=== PATIENT | female | born 1960 | race African-American/Black ===

== ENCOUNTER → 2016-05-27 | Outpatient (CLI) | payer MEDICAID | LOC: RAD 08:25 | PROVIDERS: ATTEND Family Medicine | DX: S39.92XA Unspecified injury of lower back, initial encounter (principal); X58.XXXA Exposure to other specified factors, initial encounter; Y93.9 Activity, unspecified; Y92.9 Unspecified place or not applicable | CPT/HCPCS: 72110 ==

== ENCOUNTER → 2016-09-30 | Outpatient (CLI) | payer MEDICAID ==
--- NOTE | 2016-09-30 13:33 | RADIOLOGY REPORT (SQ) ---
EXAM DESCRIPTION: KNEE LEFT 4 VIEW COMPLETED DATE/TIME: 09/30/2016 12:55 pm REASON FOR STUDY: PRIMARY OSTEOARTHRITIS OF BOTH KNEES COMPARISON: None. NUMBER OF VIEWS: Four views. TECHNIQUE: AP, lateral, and both oblique radiographic images acquired of the left knee. LIMITATIONS: None. FINDINGS: MINERALIZATION: Osteopenia BONES: No acute fracture or dislocation. No worrisome bone lesions. JOINT: No effusion. SOFT TISSUES: No soft tissue swelling. No radio-opaque foreign body. OTHER: No other significant finding. IMPRESSION: Osteopenia. No other significant abnormality is seen. TECHNICAL DOCUMENTATION: JOB ID: [id number] [employer]- All Rights Reserved
--- NOTE | 2016-09-30 13:38 | RADIOLOGY REPORT (SQ) ---
EXAM DESCRIPTION: KNEE RIGHT 4 VIEWS COMPLETED DATE/TIME: 09/30/2016 12:55 pm REASON FOR STUDY: PRIMARY OSTEOARTHRITIS OF BOTH KNEES COMPARISON: 11/24/2013 NUMBER OF VIEWS: Four views. TECHNIQUE: AP, lateral, and both oblique radiographic images acquired of the right knee. LIMITATIONS: None. FINDINGS: MINERALIZATION: Osteopenia. BONES: No acute fracture or dislocation. No worrisome bone lesions. JOINT: There is mild narrowing of the medial and lateral joint compartments, more on the medial than the lateral. Small marginal osteophytes are present more laterally than medially. Very small forming machine tender ior patellar osteophytes are present. There is no joint effusion. SOFT TISSUES: No soft tissue swelling. No radio-opaque foreign body. OTHER: No other significant finding. IMPRESSION: Osteopenia and degenerative joint changes as described TECHNICAL DOCUMENTATION: JOB ID: [id number] [employer]- All Rights Reserved
== END ==
LOC: RAD 12:38
PROVIDERS: ATTEND Family Medicine
DX: M17.0 Bilateral primary osteoarthritis of knee (principal)

== ENCOUNTER → 2016-10-30 | Outpatient (CLI) | payer MEDICAID ==
--- NOTE | 2016-10-30 10:36 | WOMENS IMAGING REPORT ---
EXAM DESCRIPTION: BONE DENSITY HIP/SPINE COMPLETED DATE/TIME: 10/30/2016 10:21 am REASON FOR STUDY: AGE RELATED OSTEOPOROSIS M81.0 AGE-RELATED OSTEOPOROSIS W/O CURRENT PATHOLOGICAL FRAC COMPARISON: None. TECHNIQUE: Dual-Energy X-ray Absorptiometry (DEXA) of the AP Spine and Hip. LIMITATIONS: None. FINDINGS: LUMBAR SPINE: The bone mineral density (BMD) measured from L1-L4 in the AP projection correlates with a T-score of -3.6, which is osteoporosis as defined by the World Health Organization. HIP: The bone mineral density (BMD) measured in the left hip correlates with a T-score of -2.6 in the femo ral neck, which is osteoporosis as defined by the World Health Organization. IMPRESSION: 1. LUMBAR SPINE: OSTEOPOROSIS. 2. HIP: OSTEOPOROSIS. COMMENT: The World Health Organization defines low BMD as follows: T-score: Normal: Greater than -1.0 Osteopenia: Between -1.0 and -2.5 Osteoporosis: Less than -2.5 without fractures Established osteoporosis: Less than -2.5 with fractures In general, you may wish to consider: Diagnosis Treatment Follow-up DEXA Normal BMD Prevention 2-3 years Osteopenia Prevention/Therapy 1-2 years Osteoporosis Therapy Yearly TECHNICAL DOCUMENTATION: JOB ID: [id number] [employer]- All Rights Reserved
== END ==
LOC: WI 09:49
PROVIDERS: ATTEND Family Medicine
DX: M81.0 Age-related osteoporosis without current pathological fracture (principal)
CPT/HCPCS: 77080

== ENCOUNTER 2016-11-27 21:25 | Emergency (ER) | payer MEDICAID ==
[2016-11-27 22:08] LABS: APPEARANCE,URINE SLIGHTLY-CLOUDY; BILIRUBIN,URINE NEGATIVE (NEGATIVE); GLUCOSE, URINE NEGATIVE (NEGATIVE); KETONES,URINE NEGATIVE (NEGATIVE); LEUKOCYTE ESTERASE,URINE NEGATIVE (NEGATIVE); NITRITE,URINE NEGATIVE (NEGATIVE); PROTEIN,URINE NEGATIVE (NEGATIVE); URINE SPECIFIC GRAVITY 1.026
[2016-11-27] MEDS ORDERED: KETOROLAC TROMETHAMINE INJ/PF 30 MG/1 ML SDV IV ONE (23:44)
[2016-11-27] MEDS ORDERED: MORPHINE SULFATE 10 MG/ML INJ IV PRN (23:44)
[2016-11-28 00:13] LABS: ABSOLUTE BASOPHILS # (AUTO) 0.2 10^3/uL (0.0-0.2); ABSOLUTE EOSINOPHILS # (AUTO) 0.8 10^3/uL (0.0-0.6); ABSOLUTE LYMPHOCYTES (AUTO) 3.6 10^3/uL (0.5-4.7); ABSOLUTE MONOCYTES (AUTO) 0.6 10^3/uL (0.1-1.4); ABSOLUTE NEUT (AUTO) 5.8 10^3/uL (1.7-8.2); BASOPHILS % (AUTO) 1.6 % (0-2); EOSINOPHILS % (AUTO) 7.2 % (0-6); HEMATOCRIT 39.5 % (36.0-47.0); HEMOGLOBIN 12.9 g/dL (12.0-15.5); HGB HCT DIFFERENCE -0.8; LYMPHOCYTES % (AUTO) 32.8 % (13-45); MEAN CORPUSCULAR HEMOGLOBIN 26.3 pg (27.0-33.4); MEAN CORPUSCULAR HGB CONC 32.6 g/dL (32.0-36.0); MEAN CORPUSCULAR VOLUME 81 fl (80-97); MONOCYTES % (AUTO) 5.1 % (3-13); RED BLOOD COUNT 4.89 10^6/uL (3.72-5.28); RED CELL DISTRIBUTION WIDTH 15.1 % (11.5-14.0); SEGMENTED NEUTROPHILS % (AUTO) 53.3 % (42-78); WHITE BLOOD COUNT 10.8 10^3/uL (4.0-10.5)
[2016-11-28] MEDS ORDERED: HYDROMORPHONE HCL INJ/PF 2 MG/ML AMPULE IV ONE (00:21)
[2016-11-28 00:26] LABS: ALANINE AMINOTRANSFERASE 26 U/L (9-52); ALBUMIN 4.2 g/dL (3.5-5.0); ALKALINE PHOSPHATASE 97 U/L (38-126); ANION GAP 11 (5-19); ASPARTATE AMINO TRANSFERASE 20 U/L (14-36); BILIRUBIN,DIRECT 0.4 mg/dL (0.0-0.4); BILIRUBIN,TOTAL 0.5 mg/dL (0.2-1.3); BLOOD UREA NITROGEN 12 mg/dL (7-20); CALCIUM 10.2 mg/dL (8.4-10.2); CARBON DIOXIDE 26 mmol/L (22-30); CHLORIDE 107 mmol/L (98-107); CREATININE RESULT 0.89 mg/dL (0.52-1.25); GLUCOSE 88 mg/dL (75-110); POTASSIUM 4.1 mmol/L (3.6-5.0); SODIUM 143.9 mmol/L (137-145); TOTAL PROTEIN 7.7 g/dL (6.3-8.2)
[2016-11-28] MEDS ORDERED: HALOPERIDOL LACTATE INJ 5 MG/1 ML VIAL IV ONE (01:25)
[2016-11-28] MEDS ORDERED: DIPHENHYDRAMINE HCL 50 MG/ML VIAL IV ONE (01:25)
--- NOTE | 2016-11-28 01:34 | RADIOLOGY REPORT (SQ) ---
EXAM DESCRIPTION: CT ABD/PELVIS NO ORAL OR IV COMPLETED DATE/TIME: 11/28/2016 12:56 am REASON FOR STUDY: right flank, rlq pain COMPARISON: None. TECHNIQUE: CT scan of the abdomen and pelvis performed without intravenous or oral contrast. Images reviewed with lung, soft tissue, and bone windows. Reconstructed coronal and sagittal MPR images revi ewed. All images stored on PACS. All CT scanners at this facility use dose modulation, iterative reconstruction, and/or weight based d osing when appropriate to reduce radiation dose to as low as reasonably achievable (ALARA). [facility]: Dose Right [facility]: CareDose [facility]: Dose Right [facility]: Teradose 4D [facility]: WebTeb RADIATION DOSE: Up-to-date CT equipment and radiation dose reduction techniques were employed. CTDIv ol: 7.5 mGy. DLP: 382 mGy-cm.mGy. LIMITATIONS: None. FINDINGS: LOWER CHEST: No significant findings. No nodules or infiltrates. Minimal pericardial flui d. NON-CONTRASTED LIVER, SPLEEN, ADRENALS: Evaluation limited by lack of IV contrast. No identified sign ificant masses. PANCREAS: No masses. No peripancreatic inflammatory changes. GALLBLADDER: Surgically absent. RIGHT KIDNEY AND URETER: No suspicious masses. Assessment limited by lack of IV contrast. No signif icant calcifications. No hydronephrosis or hydroureter. LEFT KIDNEY AND URETER: No suspicious masses. Assessment limited by lack of IV contrast. No signifi cant calcifications. No hydronephrosis or hydroureter. AORTA AND RETROPERITONEUM: No aneurysm. No retroperitoneal masses or adenopathy. BOWEL AND PERITONEAL CAVITY: No obvious masses or inflammatory changes. No free fluid. APPENDIX: Normal. PELVIS, BLADDER, AND ABDOMINAL WALL:No abnormal masses. No free fluid. Bladder normal. BONES: No significant findings. OTHER: No other significant finding. IMPRESSION: NO SIGNIFICANT OR ACUTE PROCESS IN THE ABDOMEN OR PELVIS. COMMENT: Quality ID # [id number]: Final reports with documentation of one or more dose reduction techniques (e.g., Automated exposure control, adjustment of the mA and/or kV according to patient size, use of iterative reconstruction technique) TECHNICAL DOCUMENTATION: JOB ID: [id number] [employer]- All Rights Reserved
[2016-11-28] MEDS ORDERED: LACTULOSE SYRUP 20 GM/30 ML UDCUP PO ONE (01:35)
--- NOTE | 2016-11-28 01:50 | ER Document Report ---
ED General - General Chief Complaint: Flank Pain Stated Complaint: ABDOMINAL PAIN Time Seen by Provider: 11/27/16 22:57 Notes: Patient is a 56-year-old female with a past medical history of a cholecystectomy who presents with acute onset of right lower quadrant and right flank pain approximately 4 hours prior to arrival. States the pain was abrupt in onset and has been constant since that time with intermittent periods of worsening. She denies a history of similar symptoms in the past. Nothing improves or worsens the pain. She has not seen a primary care doctor regarding today's concerns. She denies any associated vomiting or diarrhea although notes that she has not had a bowel movement in over 3 days. She has continued to pass flatus. Denies any vaginal bleeding or discharge. No dysuria. No fever or constitutional symptoms. TRAVEL OUTSIDE OF THE [place] IN LAST 30 DAYS: No - Related Data Allergies/Adverse Reactions: fentanyl [Fentanyl] Allergy (Severe, Verified 11/27/16 21:42) Anaphylaxis Penicillins Allergy (Mild, Verified 11/27/16 21:42) rash w/scars Past Medical History - General Information source: Patient - Social History Smoking Status: Never Smoker Frequency of alcohol use: None Drug Abuse: None Lives with: Family Family History: Reviewed & Not Pertinent, Other - Past Medical History Cardiac Medical History: Reports: Hx Heart Attack - "slight [place]", Hx Hypertension Denies: Hx Coronary Artery Disease Pulmonary Medical History: Reports: Hx Bronchitis Denies: Hx Asthma, Hx COPD, Hx Pneumonia Neurological Medical History: Reports: Hx Migraine. Denies: Hx Cerebrovascular Accident, Hx Seizures Renal/ Medical History: Denies: Hx Peritoneal Dialysis GI Medical History: Reports: Hx Gastroesophageal Reflux Disease Musculoskeltal Medical History: Denies Hx Arthritis Psychiatric Medical History: Denies: Hx Depression Past Surgical History: Reports: Hx Cholecystectomy. Denies: Hx Hysterectomy - Immunizations Hx Diphtheria, Pertussis, Tetanus Vaccination: Yes Hx Pneumococcal Vaccination: 12/06/14 Review of Systems - Review of Systems Notes: Constitutional: Negative for fever. HENT: Negative for sore throat. Eyes: Negative for visual changes. Cardiovascular: Negative for chest pain. Respiratory: Negative for shortness of breath. Gastrointestinal: Positive for abdominal pain Genitourinary: Negative for dysuria. Musculoskeletal: Negative for back pain. Skin: Negative for rash. Neurological: Negative for headaches, weakness or numbness. 10 point ROS negative except as marked above and in HPI. Physical Exam - Vital signs Vitals: Temp Pulse Resp BP Pulse Ox 97.7 F 94 19 146/129 H 99 11/27/16 21:44 11/27/16 21:44 11/27/16 21:44 11/27/16 21:44 11/27/16 21:44 Interpretation: Hypertensive Notes: PHYSICAL EXAMINATION: GENERAL: Appears uncomfortable but in no acute distress HEAD: Atraumatic, normocephalic. EYES: Pupils equal round and reactive to light, extraocular movements intact, sclera anicteric, conjunctiva are normal. ENT: nares patent, oropharynx clear without exudates. Moist mucous membranes. NECK: Normal range of motion, supple without lymphadenopathy LUNGS: Breath sounds clear to auscultation bilaterally and equal. No wheezes rales or rhonchi. HEART: Regular rate and rhythm without murmurs ABDOMEN: Soft, mild tenderness in the right lower quadrant as well as the right flank without any focal rebound or guarding, normoactive bowel sounds. No guarding, no rebound. No masses appreciated. EXTREMITIES: Normal range of motion, no pitting or edema. No cyanosis. NEUROLOGICAL: No focal neurological deficits. Moves all extremities spontaneously and on command. PSYCH: Anxious SKIN: Warm, Dry, normal turgor, no rashes or lesions noted. Course - Re-evaluation Re-evalutation: 11/28/16 01:48 Patient presents with acute onset of right lower quadrant and right flank tenderness. Patient has focal tenderness the right lower quadrant without rebound or guarding. She also has right CVA tenderness. Urinalysis unremarkable without evidence of acute pyelonephritis or hematuria. Her clinical history is not consistent with an acute appendicitis given that her symptoms were acute in onset. I also very low clinical suspicion for an acute mesenteric ischemia, bowel obstruction, bowel perforation, although an acute nephrolithiasis does remain in the differential despite a normal urine. CT the abdomen pelvis was obtained without contrast to further evaluate for possible nephrolithiasis. This is noted to be unremarkable with an appropriate visualization of the appendix which is also noted to be normal. She does have a large colonic stool burden particular the right side and patient does report that she has not had a bowel movement in over 3 days which may account for her abdominal pain. Repeat abdominal exam remains benign. Her vitals have remained within normal limits. Her laboratories including her white blood cell count, liver function testing, and renal function are all unremarkable. At this time will discharge with return precautions and follow-up recommendations. Verbal discharge instructions given a the bedside and opportunity for questions given. Medication warnings reviewed. Patient is in agreement with this plan and has verbalized understanding of return precautions and the need for primary care follow-up in the next 24-72 hours. - Vital Signs Vital signs: Temp Pulse Resp BP Pulse Ox 97.7 F 94 14 119/79 93 11/27/16 21:44 11/27/16 21:44 11/28/16 02:01 11/28/16 02:01 11/28/16 02:01 - Laboratory Result Diagrams: 11/27/16 23:58 11/27/16 23:58 Laboratory results interpreted by me: 11/27/16 11/27/16 21:45 23:58 WBC 10.8 H MCH 26.3 L RDW 15.1 H Eosinophils % 7.2 H Absolute Eosinophils 0.8 H Urine Urobilinogen 2.0 H Urine Ascorbic Acid 40 H - Diagnostic Test Radiology reviewed: Reports reviewed Discharge - Discharge Clinical Impression: Right lower quadrant abdominal pain, Nausea Condition: Stable Disposition: HOME, SELF-CARE Additional Instructions: You have been seen in the Emergency Department (ED) for abdominal pain. Your evaluation did not identify a clear cause of your symptoms but was generally reassuring. For your constipation: You should take 8 caps of MiraLAX and placed in 1 liter of Gatorade. Drink one half of the solution and wait 4 hours. If you do not have a bowel movement take the remaining half of the solution. Please follow up with your doctor as soon as possible regarding today's emergent visit and the symptoms that are bothering you. Return to the ED if your abdominal pain worsens or fails to improve, you develop bloody vomiting, bloody diarrhea, you are unable to tolerate fluids due to vomiting, fever greater than 101, or other symptoms that concern you. Referrals: BRITTA SCANLON, [Primary Care Provider] - Follow up as needed
[2016-11-28 02:11] VITALS: BP 119/79
== END 2016-11-28 02:17 | disposition home or self-care (01) ==
LOC: ER 21:25
DX: R10.31 Right lower quadrant pain (principal); R11.0 Nausea; R19.4 Change in bowel habit; I10 Essential (primary) hypertension; I25.2 Old myocardial infarction; Z90.49 Acquired absence of other specified parts of digestive tract; Z88.0 Allergy status to penicillin; Z87.892 Personal history of anaphylaxis; Z88.5 Allergy status to narcotic agent
CPT/HCPCS: 99284; 96374; 96375; 36415; 85025; 80053; 81001; 74176; J1200; J1630; J3490; J1885; J2270; J1170

== ENCOUNTER 2017-07-02 10:16 | Emergency (ER) | payer MEDICAID ==
[2017-07-02] MEDS ORDERED: IPRATROPIUM/ALBUTEROL 0.5-2.5 MG/3 ML AMPUL NEB ONE (11:09)
--- NOTE | 2017-07-02 11:12 | ER Document Report ---
ED General - General Chief Complaint: Breathing Difficulty Stated Complaint: BREATHING DIFFICULTY Time Seen by Provider: 07/02/17 11:03 Mode of Arrival: Ambulatory Information source: Patient Notes: 56-year-old female presents with complaints of chest wall pain lung pain. Patient notes when she does not take a breath her lungs on her over the past 2 days feels very tight. She has been smoking for 40 years but has never been diagnosed with COPD Patient denies any fevers or chills denies any DVT or PE risk factors TRAVEL OUTSIDE OF THE [place] IN LAST 30 DAYS: No - HPI Onset: Yesterday Onset/Duration: Intermittent Quality of pain: Cramping Severity: Mild Pain Level: 1 Associated symptoms: Body/muscle aches, Shortness of breath Exacerbated by: Coughing, Deep breathing Relieved by: Denies Similar symptoms previously: No Recently seen / treated by doctor: No - Related Data Allergies/Adverse Reactions: fentanyl [Fentanyl] Allergy (Severe, Verified 07/02/17 10:17) Anaphylaxis Penicillins Allergy (Mild, Verified 07/02/17 10:17) rash w/scars Past Medical History - Social History Smoking Status: Current Every Day Smoker Cigarette use (# per day): Yes Chew tobacco use (# tins/day): No Smoking Education Provided: Yes - Patient counselled regarding cessation for 4 minutes Family History: Reviewed & Not Pertinent, Other - Past Medical History Cardiac Medical History: Reports: Hx Heart Attack - "slight [place]", Hx Hypertension Denies: Hx Coronary Artery Disease Pulmonary Medical History: Reports: Hx Bronchitis Denies: Hx Asthma, Hx COPD, Hx Pneumonia Neurological Medical History: Reports: Hx Migraine. Denies: Hx Cerebrovascular Accident, Hx Seizures Renal/ Medical History: Denies: Hx Peritoneal Dialysis GI Medical History: Reports: Hx Gastroesophageal Reflux Disease Musculoskeltal Medical History: Denies Hx Arthritis Psychiatric Medical History: Denies: Hx Depression Past Surgical History: Reports: Hx Cholecystectomy. Denies: Hx Hysterectomy - Immunizations Hx Diphtheria, Pertussis, Tetanus Vaccination: Yes Hx Pneumococcal Vaccination: 12/06/14 Review of Systems - Review of Systems Notes: REVIEW OF SYSTEMS: CONSTITUTIONAL : Denies fever, chills, or sweats. Denies recent illness. EENT: Denies eye, ear, throat, or mouth pain or symptoms. Denies nasal or sinus congestion or discharge. Denies throat, tongue, or mouth swelling or difficulty swallowing. CARDIOVASCULAR: Denies chest pain. Denies palpitations or racing or irregular heart beat. Denies ankle edema. RESPIRATORY: Admits to cough admits to chest tightness GASTROINTESTINAL: Denies abdominal pain or distention. Denies nausea, vomiting , or diarrhea. Denies blood in vomitus, stools, or per rectum. Denies black, tarry stools. Denies constipation. GENITOURINARY: Denies difficulty urinating, painful urination, burning, frequency, blood in urine, or discharge. FEMALE GENITOURINARY: Denies vaginal bleeding, heavy or abnormal periods, irregular periods. Denies vaginal discharge or odor. MUSCULOSKELETAL: Denies back or neck pain or stiffness. Denies joint pain or swelling. SKIN: Denies rash, lesions or sores. HEMATOLOGIC : Denies easy bruising or bleeding. LYMPHATIC: Denies swollen, enlarged glands. NEUROLOGICAL: Denies confusion or altered mental status. Denies passing out or loss of consciousness. Denies dizziness or lightheadedness. Denies headache. Denies weakness or paralysis or loss of use of either side. Denies problems with gait or speech. Denies sensory loss, numbness, or tingling. Denies seizures. PSYCHIATRIC: Denies anxiety or stress. Denies depression, suicidal ideation, or homicidal ideation. ALL OTHER SYSTEMS REVIEWED AND NEGATIVE. PHYSICAL EXAMINATION: GENERAL: Well-appearing, well-nourished and in no acute distress. HEAD: Atraumatic, normocephalic. EYES: Pupils equal round and reactive to light, extraocular movements intact, conjunctiva are normal. ENT: Nares patent, oropharynx clear without exudates. Moist mucous membranes. NECK: Normal range of motion, supple without lymphadenopathy LUNGS: Breath sounds clear to auscultation bilaterally and equal. No wheezes rales or rhonchi. Patient notes pain when she takes of breath and HEART: Regular rate and rhythm without murmurs ABDOMEN: Soft, nontender, nondistended abdomen. No guarding, no rebound. No masses appreciated. Female : deferred Musculoskeletal: Normal range of motion, no pitting or edema. No cyanosis. NEUROLOGICAL: Cranial nerves grossly intact. Normal speech, normal gait. Normal sensory, motor exams PSYCH: Normal mood, normal affect. SKIN: Warm, Dry, normal turgor, no rashes or lesions noted. Dictation was performed using Dragon voice recognition software Physical Exam - Vital signs Vitals: Temp Pulse Resp BP Pulse Ox 98.2 F 67 18 148/83 H 97 07/02/17 10:26 07/02/17 10:07/02/17 10:07/02/17 10:07/02/17 10:26 Course - Re-evaluation Re-evalutation: 07/02/17 11:12 Patient has probable undiagnosed COPD, otherwise she looks well is in no distress CTA pending 07/02/17 13:44 CTa of the chest notes no significant abnormality, patient overall looks well is in no distress notes improvement after breathing treatments this may be disturbed COPD, I will have the patient follow up with her primary care physician she is going over there directly to set an appointment After performing a Medical Screening Examination, I estimate there is LOW risk for ACUTE CORONARY SYNDROME, PULMONARY EMBOLI, RESPIRATORY FAILURE, SEPSIS OR MENINGITIS, thus I consider the discharge disposition reasonable. I have reevaluated this patient multiple times and no significant life threatening changes are noted. The patient and I have discussed the diagnosis and risks, and we agree with discharging home with close follow-up. We also discussed returning to the Emergency Department immediately if new or worsening symptoms occur. We have discussed the symptoms which are most concerning (e.g., changing or worsening pain, trouble swallowing or breathing, neck stiffness, fever) that necessitate immediate return. - Vital Signs Vital signs: Temp Pulse Resp BP Pulse Ox 98.2 F 67 18 148/83 H 97 07/02/17 10:26 07/02/17 10:07/02/17 10:07/02/17 10:07/02/17 10:26 - Laboratory Result Diagrams: 07/02/17 11:27 07/02/17 11:27 Laboratory results interpreted by me: 07/02/17 07/02/17 11:27 11:27 MCH 26.0 L RDW 15.4 H Eosinophils % 12.0 H Absolute Eosinophils 1.0 H Sodium 145.6 H Total Protein 8.5 H - Diagnostic Test Radiology reviewed: Image reviewed - CTA chest notes no acute abnormality, Reports reviewed Discharge - Discharge Clinical Impression: Encounter for smoking cessation counseling Dyspnea Qualifiers: Dyspnea type: unspecified Qualified Code(s): R06.00 - Dyspnea, unspecified Condition: Stable Disposition: HOME, SELF-CARE Instructions: Chronic Obstructive Lung Disease ([facility]) Prescriptions: Albuterol Sulfate [Proair HFA Inhalation Aerosol 8.5 gm MDI] 2 puff IH Q4H PRN # 1 mdi PRN Reason: Prednisone [Deltasone 20 mg Tablet] 3 tab PO DAILY 5 Days tablet Referrals: BRITTA SCANLON DO [Primary Care Provider] - Follow up tomorrow
[2017-07-02 11:45] LABS: ABSOLUTE BASOPHILS # (AUTO) 0.1 10^3/uL (0.0-0.2); ABSOLUTE LYMPHOCYTES (AUTO) 2.3 10^3/uL (0.5-4.7); ABSOLUTE MONOCYTES (AUTO) 0.5 10^3/uL (0.1-1.4); ABSOLUTE NEUT (AUTO) 4.4 10^3/uL (1.7-8.2); BASOPHILS % (AUTO) 1.2 % (0-2); HEMATOCRIT 41.7 % (36.0-47.0); HEMOGLOBIN 13.6 g/dL (12.0-15.5); LYMPHOCYTES % (AUTO) 28.2 % (13-45); MEAN CORPUSCULAR HGB CONC 32.7 g/dL (32.0-36.0); MEAN CORPUSCULAR VOLUME 80 fl (80-97); MONOCYTES % (AUTO) 5.9 % (3-13); PLATELET COUNT 448 10^3/uL (150-450); RED BLOOD COUNT 5.24 10^6/uL (3.72-5.28); RED CELL DISTRIBUTION WIDTH 15.4 % (11.5-14.0); SEGMENTED NEUTROPHILS % (AUTO) 52.7 % (42-78); TOTAL CELLS COUNTED % (AUTO) 100 %; WHITE BLOOD COUNT 8.3 10^3/uL (4.0-10.5)
[2017-07-02 11:59] LABS: ALANINE AMINOTRANSFERASE 18 U/L (9-52); ALBUMIN 4.4 g/dL (3.5-5.0); ALKALINE PHOSPHATASE 80 U/L (38-126); ANION GAP 12 (5-19); ASPARTATE AMINO TRANSFERASE 28 U/L (14-36); BILIRUBIN,DIRECT 0.4 mg/dL (0.0-0.4); BILIRUBIN,TOTAL 0.6 mg/dL (0.2-1.3); BLOOD UREA NITROGEN 13 mg/dL (7-20); CALCIUM 9.7 mg/dL (8.4-10.2); CARBON DIOXIDE 27 mmol/L (22-30); CHLORIDE 107 mmol/L (98-107); CREATINE KINASE 119 U/L (30-135); GLUCOSE 85 mg/dL (75-110); POTASSIUM 4.5 mmol/L (3.6-5.0); SODIUM 145.6 mmol/L (137-145); TOTAL PROTEIN 8.5 g/dL (6.3-8.2)
[2017-07-02 12:11] LABS: CREATINE KINASE MB 0.76 ng/mL (<4.55)
[2017-07-02 12:13] LABS: TROPONIN I < 0.012 ng/mL
--- NOTE | 2017-07-02 12:56 | EKG REPORT ---
SEVERITY:- NORMAL ECG - SINUS RHYTHM : Confirmed by: Maxi Davis MD 02-Jul-2017 12:55:30
--- NOTE | 2017-07-02 13:00 | RADIOLOGY REPORT (SQ) ---
EXAM DESCRIPTION: CTA CHEST COMPLETED DATE/TIME: 07/02/2017 12:25 pm REASON FOR STUDY: smoker, cough, pain COMPARISON: None. TECHNIQUE: CT scan of the chest performed using helical scanning technique with dynamic intravenous contrast injection. Images reviewed with lung, soft tissue and bone windows. Reconstructed coronal and sagittal MPR images reviewed. Additional 3 dimensional post-processing performed to develop Maximal Intensity Projection images (OK P). All images stored on PACS. All CT scanners at this facility use dose modulation, iterative reconstruction, and/or weight based d osing when appropriate to reduce radiation dose to as low as reasonably achievable (ALARA). [facility]: Dose Right [facility]: CareDose [facility]: Dose Right [facility]: Teradose 4D [facility]: listedplaces CONTRAST TYPE AND DOSE: contrast/concentration: Isovue 370.00 mg/ml; Total Contrast Delivered: 68.0 ml; Total Saline Delivered: 80.1 ml Contrast bolus adequate for pulmonary arteries and aorta. RENAL FUNCTION: GFR > 60. RADIATION DOSE: CT Rad equipment meets quality standard of care and radiation dose reduction techniq ues were employed. CTDIvol: 15.0 - 39.7 mGy. DLP: 560 mGy-cm. . LIMITATIONS: None. FINDINGS: LUNGS AND PLEURA: No masses, infiltrates, pneumothorax. No pleural effusions, calcificati ons. AORTA AND GREAT VESSELS: No aneurysm. No dissection. HEART: No pericardial effusion. PULMONARY ARTERIES: No emboli visualized in the main pulmonary arteries or the segmental branches. HILAR AND MEDIASTINAL STRUCTURES: No identified masses or abnormal nodes. HARDWARE: None in the chest. UPPER ABDOMEN: No acute findings. Limited exam. THYROID AND OTHER SOFT TISSUES: No masses. No adenopathy. BONES: No acute or significant finding. 3D MIPS: Confirm above findings. OTHER: No other significant finding. IMPRESSION: No PE. No acute findings. COMMENT: Quality ID # [id number]: Final reports with documentation of one or more dose reduction techniques (e.g., Automated exposure control, adjustment of the mA and/or kV according to patient size, use of iterative reconstruction technique) TECHNICAL DOCUMENTATION: JOB ID: [id number] [employer]- All Rights Reserved Reading location - IP/workstation name: [facility]
[2017-07-02 13:51] VITALS: BP 110/82
== END 2017-07-02 13:51 | disposition home or self-care (01) ==
LOC: ER 10:16
DX: R06.00 Dyspnea, unspecified (principal); M79.1 Myalgia; R06.02 Shortness of breath; F17.210 Nicotine dependence, cigarettes, uncomplicated; I10 Essential (primary) hypertension; I25.2 Old myocardial infarction; Z88.0 Allergy status to penicillin; Z90.49 Acquired absence of other specified parts of digestive tract
CPT/HCPCS: 93005; 99406; 94640; 99285; 36415; 82553; 82550; 85025; 80053; 84484; 71275; 93010; J7620

== ENCOUNTER 2017-08-04 08:46 | Day surgery (SDC) | payer MEDICAID ==
[~2017-08-04 08:46] MED LIST: PROPOFOL INJ 200 MG/20 ML VIAL IV ONE
[2017-08-04 10:57] VITALS: BP 128/97
--- NOTE | 2017-08-04 13:55 | Operative Report ---
Operative Report DATE OF SURGERY: 08/04/17 Operative Report: The risks, benefits and alternatives of the procedure including risks of bleeding, perforation requiring surgery are explained to the patient in detail and informed consent is obtained. Patient was taken back to the endoscopy suite and placed in a left, lateral decubital position. Timeout was called. Propofol medications administered. A rectal examination is done which did not reveal any masses, tears or fissures. An Olympus videoscope was inserted into the patient's rectum. The scope was then carefully advanced all the way to the cecum. The cecum was identified by the usual anatomical landmarks including the ileocecal valve as well as the appendiceal office. Photodocumentation is obtained. The scope was then sequentially pulled back via the various segments of the colon including the ascending colon, hepatic flexure, transverse colon, splenic flexure, descending colon and finally into the rectosigmoid portions of the colon. Retroflexion maneuvers performed. The risks benefits and alternatives of the procedure explained to the patient in detail and informed consent is obtained.A GIF Olympus video scope was inserted into the patient's mouth and hypopharynx, the esophagus is identified intubated and insufflated, the scope was then advanced through the esophagus stomach and duodenum, retroflexion maneuver is done, the esophagus stomach and first and second portions of the duodenum examined PREOPERATIVE DIAGNOSIS: Family history of colon cancer. Colorectal cancer screening. Epigastric pain POSTOPERATIVE DIAGNOSIS: Right side colon Inflammation status post biopsy. Internal hemorrhoids. Gastritis status post biopsy. Esophagitis OPERATION: Colonoscopy with biopsy. EGD with biopsy SURGEON: LUCIO CABALLERO ANESTHESIA: LMAC TISSUE REMOVED OR ALTERED: As noted above. COMPLICATIONS: None. ESTIMATED BLOOD LOSS: None. INTRAOPERATIVE FINDINGS: As noted above. PROCEDURE: Patient tolerated the procedure well. No postprocedure complications are noted. Patient discharged in good condition. Discharge date 08/04/2017. Discharge diet: Regular. Discharge activity: Regular. 2-3 week follow-up to discuss findings. Patient is instructed to call the office or proceed to the emergency room should there be any further problems or questions. 5 year surveillance colonoscopy. We will wait on pathology.
== END 2017-08-04 11:00 | disposition home or self-care (01) ==
LOC: END 08:46
PROVIDERS: ATTEND Internal Medicine Gastroenterology
DX: Z12.11 Encounter for screening for malignant neoplasm of colon (principal); K52.9 Noninfective gastroenteritis and colitis, unspecified; K64.8 Other hemorrhoids; K62.89 Other specified diseases of anus and rectum; K29.50 Unspecified chronic gastritis without bleeding; Z80.0 Family history of malignant neoplasm of digestive organs; K21.9 Gastro-esophageal reflux disease without esophagitis; J44.9 Chronic obstructive pulmonary disease, unspecified; I10 Essential (primary) hypertension; F17.210 Nicotine dependence, cigarettes, uncomplicated; Z79.51 Long term (current) use of inhaled steroids; Z88.0 Allergy status to penicillin
CPT/HCPCS: 43239; 45380; 88342 ×2; 88305 ×2; J2704; 813

== ENCOUNTER → 2017-09-13 | Outpatient (CLI) | payer MEDICAID ==
--- NOTE | 2017-09-13 11:31 | RADIOLOGY REPORT (SQ) ---
EXAM DESCRIPTION: BARIUM SWALLOW ESOPHAGUS COMPLETED DATE/TIME: 09/13/2017 9:46 am REASON FOR STUDY: DYSPHAGIA (R13.10), GERD (K21.9) R13.10 DYSPHAGIA, UNSPECIFIED COMPARISON: None. TECHNIQUE: Under fluoroscopic guidance, patient ingested effervescent granules followed by thick and thin barium. Fluoroscopic spot images and routine radiographic images acquired and stored on PACS. 12 MM BARIUM TABLET GIVEN: Yes No significant delay in passage. LIMITATIONS: None. FLUOROSCOPY TIME: FLUORO TIME: 3.2 minutes 5 series of digital images saved to PACS. FINDINGS: NEUROMUSCULAR COORDINATION OF SWALLOW: Normal. No aspiration. ESOPHAGEAL MOTILITY: Normal peristalsis. No esophageal spasm. Prominent cricopharyngeal impression o n the upper cervical esophagus. ESOPHAGEAL MUCOSA: Normal mucosa without masses or ulceration. GASTRO-ESOPHAGEAL JUNCTION: No hiatal hernia. Minimal gastroesophageal reflux to the distal 3rd of t he esophagus. NON-GI TRACT STRUCTURES: Clips right upper quadrant post cholecystectomy OTHER: No other significant finding. IMPRESSION: Mild gastroesophageal reflux. No distal esophageal stricture is identified. COMMENT: Quality ID [id number]: Final reports for procedures using fluoroscopy that document radiation exp osure indices, or exposure time and number of fluorographic images (if radiation exposure indices are not available) TECHNICAL DOCUMENTATION: JOB ID: [id number] [employer]- All Rights Reserved Reading location - IP/workstation name: [email or web address]
== END ==
LOC: RAD 08:46
PROVIDERS: ATTEND Surgery
DX: R13.10 Dysphagia, unspecified (principal); K21.9 Gastro-esophageal reflux disease without esophagitis
CPT/HCPCS: 74220

== ENCOUNTER 2017-09-16 11:35 | Emergency (ER) | payer MEDICAID ==
[2017-09-16] MEDS ORDERED: ONDANSETRON 4 MG TAB.RAPDIS PO ONE (12:07)
[2017-09-16] MEDS ORDERED: MORPHINE SULFATE 10 MG/ML INJ IV ONE ×3 (12:08→16:25)
--- NOTE | 2017-09-16 12:08 | ER Document Report ---
ED Medical Screen (RME) - General Chief Complaint: Flank Pain Stated Complaint: RIGHT FLANK PAIN Time Seen by Provider: 09/16/17 12:05 Mode of Arrival: Ambulatory Information source: Patient TRAVEL OUTSIDE OF THE [place] IN LAST 30 DAYS: No - HPI Notes: 09/16/17 12:08 I have greeted and performed a rapid initial assessment of this patient. A comprehensive ED assessment and evaluation of the patient, analysis of test results and completion of the medical decision making process will be conducted by additional ED providers. 56-year-old female presents to emergency department with complaints of nausea and right lower quadrant pain x 1 day. Patient describes pain as a sharp and stabbing sensation located in the right lower quadrant with radiation to the right back. No alleviating or exacerbating factors. Patient denies any abdominal surgeries. Denies dysuria, hematuria, constipation,diarrhea. PHYSICAL EXAMINATION: GENERAL: Well-appearing, well-nourished and in no acute distress. HEAD: Atraumatic, normocephalic. EYES: Pupils equal round extraocular movements intact, conjunctiva are normal. ENT: Nares patent NECK: Normal range of motion LUNGS: No respiratory distress Musculoskeletal: Normal range of motion NEUROLOGICAL: Normal speech, normal gait. PSYCH: Normal mood, normal affect. SKIN: Warm, Dry, normal turgor, no rashes or lesions noted. 09/16/17 12:09 - Related Data Allergies/Adverse Reactions: fentanyl [Fentanyl] Allergy (Severe, Verified 09/16/17 11:37) Anaphylaxis Penicillins Allergy (Mild, Verified 09/16/17 11:37) rash w/scars Past Medical History - Past Medical History Cardiac Medical History: Reports: Hx Heart Attack - "slight [place]", Hx Hypertension Denies: Hx Coronary Artery Disease Pulmonary Medical History: Reports: Hx Bronchitis Denies: Hx Asthma, Hx COPD, Hx Pneumonia Neurological Medical History: Reports: Hx Migraine. Denies: Hx Cerebrovascular Accident, Hx Seizures Renal/ Medical History: Denies: Hx Peritoneal Dialysis GI Medical History: Reports: Hx Gastroesophageal Reflux Disease Musculoskeltal Medical History: Reports Hx Arthritis - OA FREEDOM KNEES Psychiatric Medical History: Denies: Hx Depression Past Surgical History: Reports: Hx Cholecystectomy. Denies: Hx Hysterectomy - Immunizations Hx Diphtheria, Pertussis, Tetanus Vaccination: Yes Physical Exam - Vital signs Vitals: Temp Pulse Resp BP Pulse Ox 97.5 F 70 18 146/86 H 100 09/16/17 11:48 09/16/17 11:48 09/16/17 11:48 09/16/17 11:48 09/16/17 11:48 Course - Vital Signs Vital signs: Temp Pulse Resp BP Pulse Ox 97.5 F 70 18 146/86 H 100 09/16/17 11:48 09/16/17 11:48 09/16/17 11:48 09/16/17 11:48 09/16/17 11:48 Doctor's Discharge - Discharge Referrals: BRITTA SCANLON DO [Primary Care Provider] - Follow up as needed
[2017-09-16 12:49] LABS: ABSOLUTE BASOPHILS # (AUTO) 0.1 10^3/uL (0.0-0.2); ABSOLUTE EOSINOPHILS # (AUTO) 0.6 10^3/uL (0.0-0.6); ABSOLUTE LYMPHOCYTES (AUTO) 2.9 10^3/uL (0.5-4.7); ABSOLUTE MONOCYTES (AUTO) 0.4 10^3/uL (0.1-1.4); ABSOLUTE NEUT (AUTO) 3.2 10^3/uL (1.7-8.2); BASOPHILS % (AUTO) 0.9 % (0-2); HEMATOCRIT 42.1 % (36.0-47.0); HEMOGLOBIN 13.9 g/dL (12.0-15.5); LYMPHOCYTES % (AUTO) 40.8 % (13-45); MEAN CORPUSCULAR HEMOGLOBIN 26.4 pg (27.0-33.4); MEAN CORPUSCULAR HGB CONC 33.1 g/dL (32.0-36.0); MEAN CORPUSCULAR VOLUME 80 fl (80-97); PLATELET COUNT 374 10^3/uL (150-450); RED BLOOD COUNT 5.27 10^6/uL (3.72-5.28); RED CELL DISTRIBUTION WIDTH 15.4 % (11.5-14.0); SEGMENTED NEUTROPHILS % (AUTO) 44.3 % (42-78); TOTAL CELLS COUNTED % (AUTO) 100 %; WHITE BLOOD COUNT 7.1 10^3/uL (4.0-10.5)
[2017-09-16 14:04] LABS: APPEARANCE,URINE CLEAR; BILIRUBIN,URINE NEGATIVE (NEGATIVE); COLOR,URINE COLORLESS; GLUCOSE, URINE NEGATIVE (NEGATIVE); KETONES,URINE NEGATIVE (NEGATIVE); LEUKOCYTE ESTERASE,URINE NEGATIVE (NEGATIVE); NITRITE,URINE NEGATIVE (NEGATIVE); PROTEIN,URINE NEGATIVE (NEGATIVE); URINE SPECIFIC GRAVITY 1.002; UROBILINOGEN,URINE NEGATIVE mg/dL (<2.0)
[2017-09-16 14:53] LABS: ALANINE AMINOTRANSFERASE 20 U/L (9-52); ALBUMIN 4.2 g/dL (3.5-5.0); ALKALINE PHOSPHATASE 85 U/L (38-126); ANION GAP 14 (5-19); ASPARTATE AMINO TRANSFERASE 22 U/L (14-36); BILIRUBIN,DIRECT 0.4 mg/dL (0.0-0.4); BILIRUBIN,TOTAL 0.5 mg/dL (0.2-1.3); BLOOD UREA NITROGEN 11 mg/dL (7-20); CALCIUM 9.9 mg/dL (8.4-10.2); CARBON DIOXIDE 21 mmol/L (22-30); CHLORIDE 109 mmol/L (98-107); GLUCOSE 80 mg/dL (75-110); LIPASE 113.3 U/L (23-300); POTASSIUM 4.3 mmol/L (3.6-5.0); SODIUM 144.1 mmol/L (137-145); TOTAL PROTEIN 7.9 g/dL (6.3-8.2)
--- NOTE | 2017-09-16 16:04 | RADIOLOGY REPORT (SQ) ---
EXAM DESCRIPTION: CT ABD/PELVIS NO ORAL OR IV COMPLETED DATE/TIME: 09/16/2017 3:35 pm REASON FOR STUDY: RLQ pain COMPARISON: None. TECHNIQUE: CT TOPOGRAM of the abdomen and pelvis performed without intravenous or oral contrast. Al l images stored on PACS. All CT scanners at this facility use dose modulation, iterative reconstruction, and/or weight based d osing when appropriate to reduce radiation dose to as low as reasonably achievable (ALARA). [facility]: Dose Right [facility]: CareDose [facility]: Dose Right [facility]: Teradose 4D [facility]: Globel Direct RADIATION DOSE: 0.01mGy. LIMITATIONS: None. FINDINGS: Patient had a barium swallow with dense liquid barium on 09/13/2017. [employer] digital radiograph for CT scan planning was obtained. There is very dense barium in the patien t's pelvis which would cause significant streak artifact on the images. In the right lower quadrant, a thin linear collection of barium is present in the expected location of the appendix, a benign fin ding. This suggests against acute appendicitis. IMPRESSION: Very dense barium is present in the pelvic colon from prior barium swallow. CT scan was not performed. Grossly nonobstructive bowel gas pattern on the CT digital topogram for CT planning . COMMENT: No charge Quality ID # [id number]: Final reports with documentation of one or more dose reduction techniques (e.g., Au tomated exposure control, adjustment of the mA and/or kV according to patient size, use of iterative reconstruction technique) TECHNICAL DOCUMENTATION: JOB ID: [id number] [employer]- All Rights Reserved Reading location - IP/workstation name: [email or web address]
--- NOTE | 2017-09-16 16:22 | ER Document Report ---
ED GI/ - General Chief Complaint: Flank Pain Stated Complaint: RIGHT FLANK PAIN Time Seen by Provider: 09/16/17 12:05 Mode of Arrival: Ambulatory Information source: Patient Notes: Patient is a 56-year-old female who presents to the ER today for right flank pain radiating around to the right lower abdomen that started while she was here in the emergency department with her who is admitted at this time. Patient states she has a history of kidney stones, denies seeing any blood in her urine. She states she had no pain until here in the emergency department when it "knocked me down to the floor." She admits to nausea but no vomiting. She states that this does feel like her previous kidney stones. TRAVEL OUTSIDE OF THE [place] IN LAST 30 DAYS: No - Related Data Allergies/Adverse Reactions: fentanyl [Fentanyl] Allergy (Severe, Verified 09/16/17 11:37) Anaphylaxis Penicillins Allergy (Mild, Verified 09/16/17 11:37) rash w/scars Past Medical History - General Information source: Patient - Social History Smoking Status: Current Every Day Smoker Family History: Reviewed & Not Pertinent, Other Patient has suicidal ideation: No Patient has homicidal ideation: No - Past Medical History Cardiac Medical History: Reports: Hx Heart Attack - "slight [place]", Hx Hypertension Denies: Hx Coronary Artery Disease Pulmonary Medical History: Reports: Hx Bronchitis Denies: Hx Asthma, Hx COPD, Hx Pneumonia Neurological Medical History: Reports: Hx Migraine. Denies: Hx Cerebrovascular Accident, Hx Seizures Renal/ Medical History: Denies: Hx Peritoneal Dialysis GI Medical History: Reports: Hx Gastroesophageal Reflux Disease Musculoskeletal Medical History: Reports Hx Arthritis - OA FREEDOM KNEES Psychiatric Medical History: Denies: Hx Depression Past Surgical History: Reports: Hx Cholecystectomy. Denies: Hx Hysterectomy - Immunizations Hx Diphtheria, Pertussis, Tetanus Vaccination: Yes Hx Pneumococcal Vaccination: 12/06/14 Review of Systems - Review of Systems Constitutional: No symptoms reported EENT: No symptoms reported Cardiovascular: No symptoms reported Respiratory: No symptoms reported Gastrointestinal: See HPI Genitourinary: See HPI Female Genitourinary: No symptoms reported Musculoskeletal: No symptoms reported Skin: No symptoms reported Hematologic/Lymphatic: No symptoms reported Neurological/Psychological: No symptoms reported Physical Exam - Vital signs Vitals: Temp Pulse Resp BP Pulse Ox 97.5 F 70 18 146/86 H 100 09/16/17 11:48 09/16/17 11:48 09/16/17 11:48 09/16/17 11:48 09/16/17 11:48 - Notes Notes: PHYSICAL EXAMINATION: GENERAL: Uncomfortable appearing, but in no acute distress. HEAD: Atraumatic, normocephalic. EYES: Pupils equal round and reactive to light, extraocular movements intact, sclera anicteric, conjunctiva are normal. NECK: Normal range of motion, supple without lymphadenopathy LUNGS: CTAB and equal. No wheezes rales or rhonchi. HEART: Regular rate and rhythm without murmurs ABDOMEN: Soft, right lower quadrant tenderness. No guarding, no rebound BACK: no vertebral tenderness, normal ROM GI/: Right CVA tenderness EXTREMITIES: Normal range of motion, no pitting edema. No cyanosis. NEUROLOGICAL: Cranial nerves grossly intact. Normal sensory/motor exams. PSYCH: Normal mood, normal affect. SKIN: Warm, Dry, normal turgor, no rashes or lesions noted Course - Re-evaluation Re-evalutation: 09/16/17 17:58 Patient has just had a barium swallow test done days ago, barium is still too much in her system for the CAT scan today to really see much. Radiologist does state that she does see the appendix however and does not see any signs of acute appendicitis, she cannot rule out kidney stone or ureteral stone today. I will provide patient with Toradol and nausea medication. - Vital Signs Vital signs: Temp Pulse Resp BP Pulse Ox 97.3 F 66 18 130/105 H 98 09/16/17 16:44 09/16/17 16:44 09/16/17 16:44 09/16/17 16:44 09/16/17 16:44 - Laboratory Result Diagrams: 09/16/17 12:22 09/16/17 14:08 Laboratory results interpreted by me: 09/16/17 09/16/17 09/16/17 12:22 12:22 14:08 MCH 26.4 L RDW 15.4 H Eosinophils % 9.0 H Chloride 109 H Carbon Dioxide 21 L Urine Blood SMALL H Discharge - Discharge Clinical Impression: Flank pain Hematuria Qualifiers: Hematuria type: unspecified type Qualified Code(s): R31.9 - Hematuria, unspecified Condition: Stable Disposition: HOME, SELF-CARE Additional Instructions: Return immediately for any new or worsening symptoms. Follow up with primary care provider, call tomorrow to make followup appointment. Prescriptions: Ondansetron [Zofran Odt 4 mg Tablet] 1 - 2 tab PO Q4HP PRN #30 tab.rapdis PRN Reason: Ketorolac Tromethamine [Toradol 10 mg Tablet] 10 mg PO Q6HP PRN #15 tablet PRN Reason: Referrals: BRITTA SCANLON DO [Primary Care Provider] - Follow up as needed
[2017-09-16 16:45] VITALS: BP 130/105
== END 2017-09-16 16:46 | disposition home or self-care (01) ==
LOC: ER 11:35
DX: R10.31 Right lower quadrant pain (principal); R31.9 Hematuria, unspecified; F17.200 Nicotine dependence, unspecified, uncomplicated; I10 Essential (primary) hypertension; Z87.442 Personal history of urinary calculi; I25.2 Old myocardial infarction; Z88.0 Allergy status to penicillin; Z90.49 Acquired absence of other specified parts of digestive tract
CPT/HCPCS: 96376; 99284; 96374; 36415; 83690; 85025; 80053; 81001; S0119; J2270; 74176

== ENCOUNTER 2017-09-19 09:34 | Emergency (ER) | payer MEDICAID ==
--- NOTE | 2017-09-19 09:48 | ER Document Report ---
ED Medical Screen (RME) - General Chief Complaint: Flank Pain Stated Complaint: SIDE PAIN Time Seen by Provider: 09/19/17 09:41 Mode of Arrival: Ambulatory Information source: Patient Notes: 56-year-old female presents with complaint of right lower quadrant pain that started 4 days prior to arrival. Patient describes the pain as constant, sharp with radiation to her back. She was seen recently and a CAT scan was performed which did not show any evidence of appendicitis but we were unable to rule out a stone at that time. Patient states that despite the antinausea and pain medication she was discharged home with the pain has gotten worse. Patient has associated nausea, vomiting. She denies any fever, chills. I have greeted and performed a rapid initial assessment of this patient. A comprehensive ED assessment and evaluation of the patient including analysis of labs and imaging ( if obtained) and completion of medical decision making will be conducted by an additional ED provider. PHYSICAL EXAMINATION: GENERAL: Appears uncomfortable HEAD: Atraumatic, normocephalic. EYES: Pupils equal round extraocular movements intact, conjunctiva are normal. NECK: Normal range of motion LUNGS: No respiratory distress Musculoskeletal: Normal range of motion NEUROLOGICAL: Normal speech, normal gait. PSYCH: Normal mood, normal affect. SKIN: Warm, Dry, normal turgor, no rashes or lesions noted. TRAVEL OUTSIDE OF THE [place] IN LAST 30 DAYS: No - Related Data Allergies/Adverse Reactions: fentanyl [Fentanyl] Allergy (Severe, Verified 09/19/17 09:45) Anaphylaxis Penicillins Allergy (Mild, Verified 09/19/17 09:45) rash w/scars Past Medical History - Social History Chew tobacco use (# tins/day): No Frequency of alcohol use: Occasional Drug Abuse: None - Past Medical History Cardiac Medical History: Reports: Hx Heart Attack - "slight [place]", Hx Hypertension Denies: Hx Coronary Artery Disease Pulmonary Medical History: Reports: Hx Bronchitis Denies: Hx Asthma, Hx COPD, Hx Pneumonia Neurological Medical History: Reports: Hx Migraine. Denies: Hx Cerebrovascular Accident, Hx Seizures Renal/ Medical History: Denies: Hx Peritoneal Dialysis GI Medical History: Reports: Hx Gastroesophageal Reflux Disease Musculoskeltal Medical History: Reports Hx Arthritis - OA FREEDOM KNEES Psychiatric Medical History: Denies: Hx Depression Past Surgical History: Reports: Hx Cholecystectomy. Denies: Hx Hysterectomy - Immunizations Hx Diphtheria, Pertussis, Tetanus Vaccination: Yes Physical Exam - Vital signs Vitals: Temp Pulse Resp BP Pulse Ox 97.9 F 66 17 142/84 H 100 09/19/17 09:38 09/19/17 09:38 09/19/17 09:38 09/19/17 09:38 09/19/17 09:38 Course - Vital Signs Vital signs: Temp Pulse Resp BP Pulse Ox 97.9 F 66 17 142/84 H 100 09/19/17 09:38 09/19/17 09:38 09/19/17 09:38 09/19/17 09:38 09/19/17 09:38 Doctor's Discharge - Discharge Referrals: BRITTA SCANLON DO [Primary Care Provider] - Follow up as needed
[2017-09-19] MEDS ORDERED: HYDROMORPHONE HCL INJ/PF 2 MG/ML AMPULE IM ONE (09:50)
[2017-09-19] MEDS ORDERED: ONDANSETRON HCL 8 MG TABLET PO ONE (09:50)
[2017-09-19] MEDS ORDERED: HYDROMORPHONE HCL INJ/PF 2 MG/ML AMPULE IV ONE ×2 (10:31→12:00)
[2017-09-19 10:45] LABS: ABSOLUTE BASOPHILS # (AUTO) 0.1 10^3/uL (0.0-0.2); ABSOLUTE EOSINOPHILS # (AUTO) 0.7 10^3/uL (0.0-0.6); ABSOLUTE LYMPHOCYTES (AUTO) 2.4 10^3/uL (0.5-4.7); ABSOLUTE MONOCYTES (AUTO) 0.3 10^3/uL (0.1-1.4); ABSOLUTE NEUT (AUTO) 3.6 10^3/uL (1.7-8.2); BASOPHILS % (AUTO) 1.3 % (0-2); EOSINOPHILS % (AUTO) 10.5 % (0-6); HEMOGLOBIN 13.2 g/dL (12.0-15.5); LYMPHOCYTES % (AUTO) 33.2 % (13-45); MEAN CORPUSCULAR HEMOGLOBIN 25.6 pg (27.0-33.4); MEAN CORPUSCULAR HGB CONC 32.2 g/dL (32.0-36.0); MEAN CORPUSCULAR VOLUME 80 fl (80-97); MONOCYTES % (AUTO) 4.7 % (3-13); PLATELET COUNT 409 10^3/uL (150-450); RED BLOOD COUNT 5.16 10^6/uL (3.72-5.28); RED CELL DISTRIBUTION WIDTH 15.4 % (11.5-14.0); SEGMENTED NEUTROPHILS % (AUTO) 50.3 % (42-78); TOTAL CELLS COUNTED % (AUTO) 100 %; WHITE BLOOD COUNT 7.2 10^3/uL (4.0-10.5)
[2017-09-19 11:04] LABS: BLOOD UREA NITROGEN 14 mg/dL (7-20); CALCIUM 9.2 mg/dL (8.4-10.2); CARBON DIOXIDE 26 mmol/L (22-30); CHLORIDE 111 mmol/L (98-107); GLUCOSE 90 mg/dL (75-110); POTASSIUM 4.4 mmol/L (3.6-5.0)
[2017-09-19 11:05] LABS: ANION GAP 9 (5-19)
--- NOTE | 2017-09-19 11:07 | ER Document Report ---
ED GI/ - General Chief Complaint: Flank Pain Stated Complaint: SIDE PAIN Time Seen by Provider: 09/19/17 09:41 Mode of Arrival: Ambulatory Information source: Patient Notes: Patient presents complaining of a one-week history of right flank and side pain. Patient states the pain does go to the left flank as well. Patient reports nausea and vomiting 6 episodes today. Patient states that she was here recently for this complaint. Patient does report urinary frequency. Patient denies any fever. Patient denies any diarrhea. TRAVEL OUTSIDE OF THE [place] IN LAST 30 DAYS: No - HPI Patient complains to provider of: Vomiting, Other - Flank pain. No: Abdominal pain, Dysuria Onset: Last week Timing/Duration: Persistent Pain Level: 4 Location: Left flank, Right flank Vaginal bleeding (Compared to normal period): None Associated symptoms: Nausea, Urinary frequency, Vomiting. denies: Diarrhea, Fever, Urinary hesitancy, Urinary retention Exacerbated by: Denies Relieved by: Denies Similar symptoms previously: Yes Recently seen / treated by doctor: Yes - Related Data Allergies/Adverse Reactions: fentanyl [Fentanyl] Allergy (Severe, Verified 09/19/17 09:45) Anaphylaxis Penicillins Allergy (Mild, Verified 09/19/17 09:45) rash w/scars Past Medical History - General Information source: Patient - Social History Smoking Status: Current Every Day Smoker Chew tobacco use (# tins/day): No Smoking Education Provided: Yes Frequency of alcohol use: Occasional Drug Abuse: None Occupation: None Lives with: Family Family History: Reviewed & Not Pertinent, Other Patient has suicidal ideation: No Patient has homicidal ideation: No - Past Medical History Cardiac Medical History: Reports: Hx Heart Attack - "slight [place]", Hx Hypertension Denies: Hx Coronary Artery Disease Pulmonary Medical History: Reports: Hx Bronchitis Denies: Hx Asthma, Hx COPD, Hx Pneumonia Neurological Medical History: Reports: Hx Migraine. Denies: Hx Cerebrovascular Accident, Hx Seizures Renal/ Medical History: Reports: Hx Kidney Stones. Denies: Hx Peritoneal Dialysis GI Medical History: Reports: Hx Gastroesophageal Reflux Disease Musculoskeletal Medical History: Reports Hx Arthritis - OA FREEDOM KNEES Psychiatric Medical History: Denies: Hx Depression Past Surgical History: Reports: Hx Cholecystectomy. Denies: Hx Hysterectomy - Immunizations Hx Diphtheria, Pertussis, Tetanus Vaccination: Yes Hx Pneumococcal Vaccination: 12/06/14 Review of Systems - Review of Systems Constitutional: No symptoms reported. denies: Fever, Recent illness EENT: No symptoms reported Cardiovascular: No symptoms reported. denies: Chest pain Respiratory: No symptoms reported. denies: Cough, Short of breath Gastrointestinal: Nausea, Vomiting. denies: Diarrhea Genitourinary: Frequency, Flank pain. denies: Dysuria Female Genitourinary: No symptoms reported Musculoskeletal: Back pain Skin: No symptoms reported Hematologic/Lymphatic: No symptoms reported Neurological/Psychological: No symptoms reported Physical Exam - Vital signs Vitals: Temp Pulse Resp BP Pulse Ox 97.9 F 66 17 142/84 H 100 09/19/17 09:38 09/19/17 09:38 09/19/17 09:38 09/19/17 09:38 09/19/17 09:38 - General General appearance: Appears well, Alert In distress: None - HEENT Head: Normocephalic, Atraumatic Eyes: Normal Conjunctiva: Normal Nasal: Normal Mouth/Lips: Normal Mucous membranes: Normal Neck: Normal, Supple. No: Lymphadenopathy - Respiratory Respiratory status: No respiratory distress Chest status: Nontender Breath sounds: Normal. No: Decreased air movement, Rales, Rhonchi, Stridor, Wheezing Chest palpation: Normal - Cardiovascular Rhythm: Regular Heart sounds: S1 appreciated, S2 appreciated Murmur: No - Abdominal Inspection: Normal Distension: No distension Bowel sounds: Normal - right mid abd tenderness Tenderness: Tender, Guarding Organomegaly: No organomegaly - Back Back: CVA tenderness - bilat - Extremities General upper extremity: Normal inspection, Normal ROM General lower extremity: Normal inspection, Normal ROM - Neurological Neuro grossly intact: Yes Cognition: Normal Leena Coma Scale Eye Opening: Spontaneous Leena Coma Scale Verbal: Oriented [place] Coma Scale Motor: Obeys Commands Leena Coma Scale Total: 15 - Psychological Associated symptoms: Normal affect, Normal mood - Skin Skin Temperature: Warm Skin Moisture: Dry Skin Color: Normal Course - Re-evaluation Re-evalutation: 09/19/17 11:[address] Jimenez regarding pt presentation and diagnostic evaluation. Reviewed patient's labs and comparison from her recent ER visit. 09/19/17 12:56 Patient without any fever or leukocytosis. Patient reports 1 week history of pain symptoms. Reviewed patient's survey scan from her previous ER visit. No concern for appendicitis at this time. No concern for obstructive uropathy. Suspect that patient may have musculoskeletal back pain symptoms. Patient states that her primary doctor was planning to refer her to a chiropractor to manage her back pain symptoms. The patient presents with low back pain without signs of spinal cord compression, cauda equina syndrome, infection, aneurysm, or other serious etiology. The patient is neurologically intact. Given the extremely risk of these diagnoses further testing and evaluation for these possibilities does not appear to be indicated at this time. Patient has been instructed to return if the symptoms worsen or change in any way. - Vital Signs Vital signs: Temp Pulse Resp BP Pulse Ox 98 F 68 16 137/82 H 100 09/19/17 13:16 09/19/17 13:16 09/19/17 13:16 09/19/17 13:16 09/19/17 13:16 - Laboratory Result Diagrams: 09/19/17 10:00 09/19/17 10:00 Laboratory results interpreted by me: 09/19/17 09/19/17 09/19/17 10:00 10:00 10:00 MCH 25.6 L RDW 15.4 H Eosinophils % 10.5 H Absolute Eosinophils 0.7 H Sodium 146.0 H Chloride 111 H Urine Blood MODERATE H Urine Urobilinogen 2.0 H 09/19/17 12:57 Labs- Entire Visit 09/19/17 09/19/17 09/19/17 10:00 10:00 10:00 WBC 7.2 RBC 5.16 Hgb 13.2 Hct 41.0 MCV 80 MCH 25.6 L MCHC 32.2 RDW 15.4 H Plt Count 409 Seg Neutrophils % 50.3 Lymphocytes % 33.2 Monocytes % 4.7 Eosinophils % 10.5 H Basophils % 1.3 Absolute Neutrophils 3.6 Absolute Lymphocytes 2.4 Absolute Monocytes 0.3 Absolute Eosinophils 0.7 H Absolute Basophils 0.1 Sodium 146.0 H Potassium 4.4 Chloride 111 H Carbon Dioxide 26 Anion Gap 9 BUN 14 Creatinine 0.86 Est GFR ( Amer) > 60 Est GFR (Non-Af Amer) > 60 Glucose 90 Calcium 9.2 Urine Color YELLOW Urine Appearance SLIGHTLY-CLOUDY Urine pH 5.0 Ur Specific [place] 1.023 Urine Protein NEGATIVE Urine Glucose (UA) NEGATIVE Urine Ketones NEGATIVE Urine Blood MODERATE H Urine Nitrite NEGATIVE Urine Bilirubin NEGATIVE Urine Urobilinogen 2.0 H Ur Leukocyte Esterase NEGATIVE Urine WBC (Auto) 1 Urine RBC (Auto) 9 Squamous Epi Cells Auto 6 Urine Mucus (Auto) OCC Urine Ascorbic Acid NEGATIVE - Diagnostic Test Radiology reviewed: Reports reviewed Discharge - Discharge Clinical Impression: Flank pain Condition: Stable Disposition: HOME, SELF-CARE Instructions: Abdominal Pain ([facility]), Flank Pain ([facility]) Additional Instructions: Return immediately for any new or worsening symptoms Followup with your primary care provider tomorrow as planned Prescriptions: Methocarbamol [Robaxin 500 Mg Tablet] 500 mg PO QID PRN #24 tablet PRN Reason: Forms: Smoking Cessation Education Referrals: BRITTA SCANLON DO [Primary Care Provider] - Follow up tomorrow
[2017-09-19 11:16] LABS: APPEARANCE,URINE SLIGHTLY-CLOUDY; BILIRUBIN,URINE NEGATIVE (NEGATIVE); COLOR,URINE YELLOW; GLUCOSE, URINE NEGATIVE (NEGATIVE); KETONES,URINE NEGATIVE (NEGATIVE); LEUKOCYTE ESTERASE,URINE NEGATIVE (NEGATIVE); NITRITE,URINE NEGATIVE (NEGATIVE); PROTEIN,URINE NEGATIVE (NEGATIVE); URINE SPECIFIC GRAVITY 1.023
--- NOTE | 2017-09-19 12:30 | RADIOLOGY REPORT (SQ) ---
EXAM DESCRIPTION: [employer] COMPLETED DATE/TIME: 09/19/2017 12:00 pm REASON FOR STUDY: r side, r flank pain COMPARISON: None. TECHNIQUE: Dynamic and static grayscale images acquired of the kidneys and bladder and recorded on P ACS. Additional selected color Doppler and spectral images recorded. LIMITATIONS: None. FINDINGS: RIGHT KIDNEY: Normal size. Normal echogenicity. No solid or suspicious masses. No h ydronephrosis. No calcifications. LEFT KIDNEY: Normal size. Normal echogenicity. No solid or suspicious masses. No hydronephrosi s. No calcifications. BLADDER: No masses. OTHER FINDINGS: No other significant finding. IMPRESSION: NORMAL RENAL AND BLADDER ULTRASOUND. TECHNICAL DOCUMENTATION: JOB ID: [id number] [employer] All Rights Reserved Reading location - IP/workstation name: [email or web address]
[2017-09-19] MEDS ORDERED: LIDOCAINE 5% (700 MG) TRANSDERMAL ADH..PATCH TP ONE (12:57)
[2017-09-19 13:17] VITALS: BP 137/82
== END 2017-09-19 13:18 | disposition home or self-care (01) ==
LOC: ER 09:34
DX: R10.9 Unspecified abdominal pain (principal); R11.2 Nausea with vomiting, unspecified; R35.0 Frequency of micturition; M54.5 Low back pain; F17.200 Nicotine dependence, unspecified, uncomplicated; I10 Essential (primary) hypertension; Z88.0 Allergy status to penicillin; Z87.892 Personal history of anaphylaxis
CPT/HCPCS: 96376; 99284; 96374; 36415; 85025; 80048; 81001; 76775; J1170; S0119; J3490

== ENCOUNTER → 2017-09-21 | Day surgery (SDC) | payer MEDICAID ==
[~2017-09-21] MED LIST changes: +LABETALOL HCL 200 MG TABLET ONE; +LIDOCAINE 2% JELLY 5 ML TUBE ONE; +MAGNESIUM SULFATE 20 GM/500 ML RTUINJ IV ONE; -PROPOFOL INJ 200 MG/20 ML VIAL IV ONE
== END ==
LOC: END 07:40
PROVIDERS: ATTEND Surgery
DX: R13.10 Dysphagia, unspecified (principal)

== ENCOUNTER → 2017-10-26 | Outpatient (CLI) | payer MEDICAID ==
--- NOTE | 2017-10-26 13:28 | WOMENS IMAGING REPORT ---
EXAM DESCRIPTION: BILAT SCREENING MAMMO W/CAD COMPLETED DATE/TIME: 10/26/2017 11:19 am REASON FOR STUDY: ROUTINE BILATERAL SCREENING;Z12.31 Z12.31 ENCNTR SCREEN MAMMOGRAM FOR MALIGNANT N EOPLASM OF JUVENAL COMPARISON: No previous, patient cannot remember where her last mammograms were TECHNIQUE: Standard craniocaudal and mediolateral oblique views of each breast recorded using digita l acquisition. LIMITATIONS: None. FINDINGS: Findings present which are benign by mammographic criteria. No suspicious masses, calcifi cations or architectural distortion. Pertinent benign findings: Multiple smooth round benign-appearing bilateral mammographic masses likel y breast cysts or intramammary lymph nodes. Read with the assistance of CAD. .[facility] - R2 Cenova Version 1.3 .[facility] Imaging - R2 Cenova Version 1.[address] Imaging - R2 Cenova Version 2.4 .[facility] - R2 Cenova Version 2.4 .[facility] - R2 Canopy Inspector Version 9.2 Benign mammographic findings may include one or more of the following: Smooth masses, popcorn/rim/co arse calcifications, asymmetries, post-procedure changes, and lesions with long-standing stability. IMPRESSION: BENIGN MAMMOGRAPHIC FINDINGS. BIRADS 2 BREAST DENSITY: c. The breasts are heterogeneously dense, which may obscure small masses. BIRAD: 2 BENIGN FINDING(S) RECOMMENDATION: ROUTINE SCREENING Please continue yearly bilateral screening mammography/tomosynthesis in October 2018 COMMENT: The patient has been notified of the results by letter per MQSA requirements. Additional no tification policies are in place for contacting patient with suspicious or incomplete findings. Quality ID #[id number]: The [employer] recommends an annual screening mammogram for women aged 40 years or over. This facility utilizes a reminder system to ensure that all patients receive reminder letters, and/or direct phone calls for appointments. This includes reminders for routine scr eening mammograms, diagnostic mammograms, or other Breast Imaging Interventions when appropriate. Th is patient will be placed in the appropriate reminder system. The [employer] (ACR) has developed recommendations for screening MRI of the breast s in certain patient populations, to be used in conjunction with mammography. Breast MRI surveillanc e may be appropriate for women with more than 20% lifetime risk of developing breast cancer as deter mined by genetic testing, significant family history of the disease, or history of mantle radiation f or Hodgkins Disease. ACR Practice Guidelines 2008. TECHNICAL DOCUMENTATION: FINDING NUMBER: (1) ASSESSMENT: (1) JOB ID: [id number] [employer]- All Rights Reserved Reading location - IP/workstation name: [email or web address]
== END ==
LOC: WI 09:57
PROVIDERS: ATTEND Physician Assistant Medical
DX: Z12.31 Encounter for screening mammogram for malignant neoplasm of breast (principal)
CPT/HCPCS: 77067

== ENCOUNTER → 2017-10-28 | Outpatient (CLI) | payer MEDICAID ==
[~2017-10-28] MED LIST changes: +KETOROLAC TROMETHAMINE INJ/PF 30 MG/1 ML SDV ONE; -LABETALOL HCL 200 MG TABLET ONE; -LIDOCAINE 2% JELLY 5 ML TUBE ONE; +LORAZEPAM INJ 2 MG/1 ML VIAL ONE; -MAGNESIUM SULFATE 20 GM/500 ML RTUINJ IV ONE
--- NOTE | 2017-10-28 11:27 | RADIOLOGY REPORT (SQ) ---
EXAM DESCRIPTION: CT ABD/PELVIS COMBO COMPLETED DATE/TIME: 10/28/2017 8:28 am REASON FOR STUDY: GROSS HEMATURIA R31.0 GROSS HEMATURIA COMPARISON: 11/28/2016 TECHNIQUE: CT scan of the abdomen and pelvis performed with and without intravenous contrast, and wi thout oral contrast. Contrasted imaging performed helical scanning technique and dynamic intravenous contrast injection. Images reviewed with lung, soft tissue, and bone windows. Reconstructed coronal a nd sagittal MPR images reviewed. Delayed images for evaluation of the urinary system also acquired. A ll images stored on PACS. All CT scanners at this facility use dose modulation, iterative reconstruction, and/or weight based d osing when appropriate to reduce radiation dose to as low as reasonably achievable (ALARA). [facility]: Dose Right [facility]: CareDose [facility]: Dose Right [facility]: Teradose 4D [facility]: Confluence Solar CONTRAST TYPE AND DOSE: 81 cc Omnipaque 350- low osmolar. RENAL FUNCTION: BUN 13 creatinine 0.8 RADIATION DOSE: . LIMITATIONS: None. FINDINGS: NON-CONTRASTED IMAGIN mm stone upper pole right kidney. POST-CONTRASTED IMAGING: LOWER CHEST: No significant findings. No nodules or infiltrates. LIVER: Normal size. No masses. No dilated ducts. SPLEEN: Normal size. No focal lesions. PANCREAS: No masses. No significant calcifications. No adjacent inflammation or peripancreatic fluid collections. Pancreatic duct not dilated. GALLBLADDER: Surgically absent. ADRENAL GLANDS: No significant masses or asymmetry. RIGHT KIDNEY AND URETER: No solid masses. 1 mm stone upper pole. No hydronephrosis or hydroureter . LEFT KIDNEY AND URETER: Subcentimeter low-density lesions too small to characterize but likely benign cysts. Subcentimeter higher density cortical lesion lower pole, probably a hemorrhagic cyst, and un changed. No significant calcifications. No hydronephrosis or hydroureter. AORTA AND VESSELS: No aneurysm. No dissection. Renal arteries, SMA, celiac without stenosis. RETROPERITONEUM: No retroperitoneal adenopathy, hemorrhage or masses. BOWEL AND PERITONEAL CAVITY: No masses or inflammatory changes. No free fluid or peritoneal masses. APPENDIX: Normal. PELVIS: No mass. No free fluid. Normal bladder. ABDOMINAL WALL: No masses. No hernias. BONES: No significant or acute findings. OTHER: No other significant finding. IMPRESSION: 1 mm nonobstructing stone upper pole right kidney. TECHNICAL DOCUMENTATION: JOB ID: [id number] Quality ID # [id number]: Final reports with documentation of one or more dose reduction techniques (e.g., Au tomated exposure control, adjustment of the mA and/or kV according to patient size, use of iterative reconstruction technique) 2010 [employer]- All Rights Reserved Reading location - IP/workstation name: [email or web address]-[email or web address]
== END ==
LOC: RAD 07:27
PROVIDERS: ATTEND Urology
DX: N20.0 Calculus of kidney (principal); R31.0 Gross hematuria
CPT/HCPCS: 74178

== ENCOUNTER 2017-10-29 06:54 | Day surgery (SDC) | payer MEDICAID ==
[2017-10-22 11:09] LABS: HEMATOCRIT 41.3 % (36.0-47.0); HEMOGLOBIN 13.6 g/dL (12.0-15.5); MEAN CORPUSCULAR HEMOGLOBIN 26.3 pg (27.0-33.4); MEAN CORPUSCULAR VOLUME 80 fl (80-97); PLATELET COUNT 367 10^3/uL (150-450); RED CELL DISTRIBUTION WIDTH 15.6 % (11.5-14.0)
[2017-10-22 11:56] LABS: ALANINE AMINOTRANSFERASE 18 U/L (9-52); ALBUMIN 4.5 g/dL (3.5-5.0); ALKALINE PHOSPHATASE 94 U/L (38-126); ANION GAP 14 (5-19); ASPARTATE AMINO TRANSFERASE 23 U/L (14-36); BILIRUBIN,DIRECT 0.3 mg/dL (0.0-0.4); BILIRUBIN,TOTAL 0.5 mg/dL (0.2-1.3); BLOOD UREA NITROGEN 13 mg/dL (7-20); CALCIUM 9.9 mg/dL (8.4-10.2); CARBON DIOXIDE 22 mmol/L (22-30); CHLORIDE 106 mmol/L (98-107); GLUCOSE 80 mg/dL (75-110); POTASSIUM 4.8 mmol/L (3.6-5.0); SODIUM 142.2 mmol/L (137-145); TOTAL PROTEIN 8.8 g/dL (6.3-8.2)
--- NOTE | 2017-10-22 12:34 | EKG REPORT ---
SEVERITY:- NORMAL ECG - SINUS RHYTHM : Confirmed by: Maxi Davis MD 22-Oct-2017 12:34:15
[~2017-10-29 06:54] MED LIST changes: -KETOROLAC TROMETHAMINE INJ/PF 30 MG/1 ML SDV ONE; +LACTATED RINGERS 1000 ML IV PRN; +LIDOCAINE 0.5% INJ-PF (5 MG/ML) 50 ML SDV SUBCUT PRN; -LORAZEPAM INJ 2 MG/1 ML VIAL ONE; +VANCOMYCIN HCL 1,000 MG in DEXTROSE 5%-WATER 250 ML IV PRN
[2017-10-29] MEDS ORDERED: LIDOCAINE 2% INJ-PF (20 MG/ML) 10 ML AMPUL ONE (07:16)
[2017-10-29] MEDS ORDERED: ONDANSETRON HCL INJ/PF 4 MG/2 ML SDV ONE (07:17)
[2017-10-29] MEDS ORDERED: DEXAMETHASONE SOD PHOSPHATE INJ 4 MG/1 ML VIAL ONE (07:17)
[2017-10-29] MEDS ORDERED: FENTANYL CITRATE INJ/PF 250 MCG/5 ML AMPULE ONE ×2 (07:17→13:53)
[2017-10-29] MEDS ORDERED: MIDAZOLAM 2 MG/2 ML INJ ONE ×2 (07:17→08:25)
[2017-10-29] MEDS ORDERED: PROPOFOL INJ 200 MG/20 ML VIAL IV ONE (07:18)
[2017-10-29] MEDS ORDERED: ACETAMINOPHEN 1,000 MG/100 ML RTUPB IV ONE (07:18)
[2017-10-29] MEDS ORDERED: FAMOTIDINE INJ/PF 20 MG/2 ML SDV IV ONE (08:17)
[2017-10-29] MEDS ORDERED: ALBUTEROL SULFATE 0.083% NEB 2.5 MG/3 ML AMPUL NEB ONE (08:25)
[2017-10-29] MEDS ORDERED: BUPIVACAINE HCL 0.5 % INJ/PF 30 ML SDV ONE (08:34)
[2017-10-29] MEDS ORDERED: HYDROMORPHONE HCL INJ/PF 2 MG/ML AMPULE ONE (09:55)
[2017-10-29] MEDS ORDERED: SUCCINYLCHOLINE CHLORIDE INJ 200 MG/10 ML VIAL ONE (10:12)
[2017-10-29] MEDS ORDERED: VECURONIUM BROMIDE INJ 10 MG VIAL IV ONE (10:12)
[2017-10-29] MEDS ORDERED: GLYCOPYRROLATE 1 MG/5 ML SYRINGE ONE (10:12)
[2017-10-29] MEDS ORDERED: NEOSTIGMINE METHYLSULFATE 10 MG/10 ML VIAL ONE (10:12)
[2017-10-29] MEDS ORDERED: PROMETHAZINE HCL INJ 25 MG/1 ML VIAL IV PRN ×2 (11:28)
[2017-10-29] MEDS ORDERED: MORPHINE SULFATE 10 MG/ML INJ IV PRN (11:28)
[2017-10-29] MEDS ORDERED: MEPERIDINE HCL/PF INJ 25 MG/1 ML DISP.SYRIN IV PRN (11:28)
[2017-10-29] MEDS ORDERED: ONDANSETRON HCL INJ/PF 4 MG/2 ML SDV IV PRN ×2 (11:28→16:10)
[2017-10-29] MEDS ORDERED: DIPHENHYDRAMINE HCL 50 MG/ML VIAL IV PRN (11:28)
[2017-10-29] MEDS ORDERED: METHYLENE BLUE 50 MG/10 ML AMPULE ONE (12:39)
[2017-10-29] MEDS ORDERED: KETOROLAC TROMETHAMINE INJ/PF 30 MG/1 ML SDV ONE (14:37)
[2017-10-29] MEDS: DEXTROSE 5%-LACTATED RINGERS 1,000 ML IV PRN (15:40)
[2017-10-29] MEDS ORDERED: LORAZEPAM INJ 2 MG/1 ML VIAL IV ONE (16:00)
[2017-10-29] MEDS ORDERED: GLUCAGON,HUMAN RECOMB 1 MG INJ SUBCUT PRN (16:10)
[2017-10-29] MEDS ORDERED: DEXTROSE 40% GEL 15 GM TUBE PO PRN ×2 (16:10)
[2017-10-29] MEDS ORDERED: DEXTROSE 50%-WATER 25 GM/50 ML DISP.SYRIN IV PRN ×2 (16:10)
[2017-10-29] MEDS: MORPHINE SULFATE 10 MG/ML INJ IV PRN ×2 (18:18→23:36)
[2017-10-29] MEDS ORDERED: ALBUTEROL SULFATE HFA (90 MCG/PUFF) 200 PUFF/8.5 GM MDI IH PRN (18:49)
[2017-10-29] MEDS: PROPRANOLOL HCL 10 MG TABLET PO SCH (23:31)
[2017-10-29] MEDS: CARBIDOPA/LEVODOPA 25-100 MG TABLET PO SCH (23:31)
[2017-10-30] MEDS: MORPHINE SULFATE 10 MG/ML INJ IV PRN ×2 (04:21→09:48)
[2017-10-30 07:23] LABS: ABSOLUTE BASOPHILS # (AUTO) 0.1 10^3/uL (0.0-0.2); ABSOLUTE LYMPHOCYTES (AUTO) 2.3 10^3/uL (0.5-4.7); ABSOLUTE MONOCYTES (AUTO) 0.9 10^3/uL (0.1-1.4); ABSOLUTE NEUT (AUTO) 9.3 10^3/uL (1.7-8.2); BASOPHILS % (AUTO) 0.7 % (0-2); EOSINOPHILS % (AUTO) 0.2 % (0-6); HEMATOCRIT 35.6 % (36.0-47.0); HEMOGLOBIN 11.8 g/dL (12.0-15.5); LYMPHOCYTES % (AUTO) 18.6 % (13-45); MEAN CORPUSCULAR HEMOGLOBIN 26.1 pg (27.0-33.4); MEAN CORPUSCULAR HGB CONC 33.2 g/dL (32.0-36.0); MEAN CORPUSCULAR VOLUME 79 fl (80-97); MONOCYTES % (AUTO) 6.8 % (3-13); PLATELET COUNT 380 10^3/uL (150-450); RED BLOOD COUNT 4.53 10^6/uL (3.72-5.28); RED CELL DISTRIBUTION WIDTH 15.3 % (11.5-14.0); SEGMENTED NEUTROPHILS % (AUTO) 73.7 % (42-78); TOTAL CELLS COUNTED % (AUTO) 100 %; WHITE BLOOD COUNT 12.6 10^3/uL (4.0-10.5)
[2017-10-30 07:55] LABS: ALANINE AMINOTRANSFERASE 22 U/L (9-52); ALKALINE PHOSPHATASE 71 U/L (38-126); ANION GAP 15 (5-19); ASPARTATE AMINO TRANSFERASE 66 U/L (14-36); BILIRUBIN,DIRECT 0.3 mg/dL (0.0-0.4); BILIRUBIN,TOTAL 0.6 mg/dL (0.2-1.3); BLOOD UREA NITROGEN 12 mg/dL (7-20); CALCIUM 9.7 mg/dL (8.4-10.2); CARBON DIOXIDE 21 mmol/L (22-30); CHLORIDE 106 mmol/L (98-107); GLUCOSE 92 mg/dL (75-110); SODIUM 141.7 mmol/L (137-145); TOTAL PROTEIN 7.5 g/dL (6.3-8.2)
--- NOTE | 2017-10-30 08:39 | RADIOLOGY REPORT (SQ) ---
EXAM DESCRIPTION: CHEST SINGLE VIEW COMPLETED DATE/TIME: 10/30/2017 7:39 am REASON FOR STUDY: shortness of breath COMPARISON: CT dated 07/02/2017. EXAM PARAMETERS: NUMBER OF VIEWS: One view. TECHNIQUE: Single frontal radiographic view of the chest acquired. RADIATION DOSE: NA LIMITATIONS: None. FINDINGS: LUNGS AND PLEURA: No opacities, masses or pneumothorax. No pleural effusion. MEDIASTINUM AND HILAR STRUCTURES: No masses. Contour normal. HEART AND VASCULAR STRUCTURES: Heart normal in size. Normal vasculature. BONES: No acute findings. HARDWARE: None in the chest. OTHER: No other significant finding. IMPRESSION: NO ACUTE RADIOGRAPHIC FINDING IN THE CHEST. TECHNICAL DOCUMENTATION: JOB ID: [id number] [employer]- All Rights Reserved Reading location - IP/workstation name: [email or web address]
[2017-10-30] MEDS: ENOXAPARIN SODIUM INJ 40 MG/0.4 ML DISP.SYRIN SUBCUT SCH (09:41)
[2017-10-30] MEDS: SODIUM CHLORIDE NASAL SPRAY 44 ML NAREB SCH ×3 (09:43→18:31)
[2017-10-30] MEDS: PROPRANOLOL HCL 10 MG TABLET PO SCH ×2 (09:43→22:30)
[2017-10-30] MEDS: PANTOPRAZOLE SODIUM 40 MG VIAL IV SCH (09:44)
[2017-10-30] MEDS: TIOTROPIUM BROMIDE DPI 5 CAP/KIT (18 MCG/CAP) IH SCH (09:45)
[2017-10-30] MEDS: TOPIRAMATE 25 MG TABLET PO SCH (09:46)
[2017-10-30] MEDS: DEXTROSE 5%-LACTATED RINGERS 1,000 ML IV PRN (09:47)
--- NOTE | 2017-10-30 11:30 | PDOC PROGRESS REPORT ---
Subjective Progress Note for:: 10/30/17 Reason For Visit: K44.9 DIAPHRAGMATIC HERNIA WITHOUT OBSTRUCTION OR Physical Exam Vital Signs: Temp Pulse Resp BP Pulse Ox 98.3 F 61 18 134/48 H 94 10/30/17 07:08 10/30/17 07:08 10/30/17 07:08 10/30/17 07:08 10/30/17 07:08 Intake & Output 10/29/17 10/30/17 10/31/17 06:59 06:59 06:59 Intake Total 4090 Output Total 595 20 Balance 3495 -20 Weight 74.84 kg 73.7 kg Results Laboratory Results: 10/30/17 06:14 10/30/17 06:14 10/30/17 10/30/17 06:14 06:14 WBC 12.6 H RBC 4.53 Hgb 11.8 L Hct 35.6 L MCV 79 L MCH 26.1 L MCHC 33.2 RDW 15.3 H Plt Count 380 Seg Neutrophils % 73.7 Lymphocytes % 18.6 Monocytes % 6.8 Eosinophils % 0.2 Basophils % 0.7 Absolute Neutrophils 9.3 H Absolute Lymphocytes 2.3 Absolute Monocytes 0.9 Absolute Eosinophils 0.0 Absolute Basophils 0.1 Sodium 141.7 Potassium 5.0 Chloride 106 Carbon Dioxide 21 L Anion Gap 15 BUN 12 Creatinine 0.77 Est GFR ( Amer) > 60 Est GFR (Non-Af Amer) > 60 Glucose 92 Calcium 9.7 Total Bilirubin 0.6 AST 66 H ALT 22 Alkaline Phosphatase 71 Total Protein 7.5 Albumin 4.0 Impressions: Chest X-Ray 10/30/17 06:00 IMPRESSION: NO ACUTE RADIOGRAPHIC FINDING IN THE CHEST. Assessment & Plan - Plan Summary Plan Summary: This is a 57-year-old female status post robot-assisted laparoscopic hiatal hernia repair with Toupet fundoplication. The patient is doing well. She is swallowing without difficulty. I will advance her to a full liquid diet. Continue NO carbonated beverages. She still complains of abdominal discomfort. Vital signs are stable. I will adjust her pain medications accordingly.
[2017-10-30] MEDS ORDERED: MORPHINE SULFATE 10 MG/ML INJ IV PRN (11:33)
--- NOTE | 2017-10-30 12:37 | Operative Report ---
Nonrecallable Operative Report DATE OF SURGERY: 10/29/17 PREOPERATIVE DIAGNOSIS: 1. severe reflux, incompletely controlled with medications. 2. Hiatal hernia. 3. Evidence of esophageal dysmotility on manometry. POSTOPERATIVE DIAGNOSIS: Same as above OPERATION: 1. Robot assisted hiatal hernia repair. 2. Toupet fundoplication. 3. EGD SURGEON: AMY LIMON ANESTHESIA: GA TISSUE REMOVED OR ALTERED: None COMPLICATIONS: Small mucosal tear identified within the esophagus upon EGD. Visually, it appeared superficial. After testing, there was no evidence of esophageal leak. ESTIMATED BLOOD LOSS: 25 cc PROCEDURE: Drains/implants: None. Procedure in detail: After informed consent was obtained, the patient was brought into the operating room and laid in the supine position. The area of the abdomen was prepped and draped in a normal sterile fashion. An incision was created 2 cm superior and lateral to the umbilicus in the left abdominal wall. Dissection was carried through the subcutaneous tissue to the fascia using blunt means. The fascia was incised sharply. The rectus muscle was spread bluntly. The posterior sheath was incised sharply. The abdomen was then entered. The balloon trocar was inserted, and pneumoperitoneum was achieved. A left upper quadrant 8 mm robotic trocar was placed under direct laparoscopic visualization, as was a left lateral 8 mm robotic trocar. A right upper quadrant 8 mm robotic trocar was then placed, and a right lateral abdominal wall 5 mm trocar was placed. These were also placed under direct laparoscopic visualization. The liver retractor was then placed through the 5 mm trocar and used to retract the left lobe of the liver anteriorly. Once this was completed , the robot was brought over the patient and docked. I then assumed my position at the surgeon's console. Attention was turned to dissection at the pars flaccida. Bovie electrocautery was used to divide the pars flaccida and the right dean was brought into view. The right dean was dissected free, and the small hernia was identified. Dissection was carried posteriorly, and the left dean of the diaphragm was identified. The dissection was then carried anteriorly, taking great care not to injure the vagus nerve. The hernia defect appeared to lie in a more anterior position. Attention was then turned to the division of the short gastric arteries. The robotic vessel sealing device was used to divide the short gastric arteries immediately adjacent to the fundus of the stomach. This was done from a point at the mid fundus all the way up to the left dean of the diaphragm. The posterior dissection was then completed using a mixture of blunt dissection and Bovie electrocautery. Once the anterior and posterior dissections were complete , full visualization of the hiatal hernia was performed. Again, the defect appeared to lie in a more anterior position. A 58 [place]an bougie was then placed into the esophagus as a place feldman. The crural repair was then performed. One 2-0 Ethibond suture was placed posterior to the esophagus in [id number] fashion. This closed the posterior aspect of the defect very well, however the anterior defect was still open. To avoid displacement and/or kinking of the esophagus it was felt necessary to close the anterior aspect of the hernia defect. Another 2-0 Ethibond [id number] suture was placed anterior to the esophagus. This closed the defect adequately. The repair was inspected. Due to the patient's anatomy, it was felt there was not enough space for a hernia mesh, so mesh was not used. Next the fundus was wrapped posteriorly with the [address] The fundus wrapped easily around the esophagus. The fundus was then sutured to the esophagus and anterior stomach using 3-0 Ethibond suture in simple interrupted fashion. This was done with approximately 3 cm of the esophagus in the intra-abdominal position. Once the fundoplication was complete, the 58 [place]an bougie was removed. The fundus was pexied to the crura on the right and left side. This was done with 3-0 Ethibond suture. Attention was then turned to the EGD. The flexible gastroscope was passed down the oropharynx and into the esophagus. In the distal esophagus, there was a small mucosal tear with bleeding. It was located on the postero-medial side of the esophagus. The irregularity did not appear to be full-thickness on visualization. I believe that this tear was related to bougie placement. Copious amounts of irrigation were used to clean any blood and aid in visualization. The esophagus was then filled with methylene blue, water, and air. Visualization was then performed within the abdomen via the robotic camera. No evidence of leak could be identified from within the esophagus or within the abdominal cavity. Once this was confirmed, the flexible gastroscope was removed from the patient. I then scrubbed back into the case. The robot was undocked and moved away from the patient. A 15 [place]an round Lloyd drain was placed into the abdomen and directed immediately adjacent to the esophagus. It was sutured to the skin using 2-0 nylon suture. The 12 mm trocar was removed. The defect was closed using 0 Vicryl suture in simple interrupted fashion 2 with the aid of the Endo Close device. The liver retractor was removed from the patient, the trochars were removed, and pneumoperitoneum was relieved. The overlying skin was closed using 4-0 Vicryl Rapide suture in subcuticular fashion. Dressings were placed, and the procedure was concluded. All sponge, instrument, and needle counts were correct 2. Condition: Stable.
[2017-10-30] MEDS: OXYCODONE-ACETAMINOPHEN 5-325 MG TABLET PO PRN ×2 (12:50→22:29)
[2017-10-30] MEDS: BENZOCAINE/MENTHOL SORE THROAT LOZENGE BUCCAL PRN ×3 (15:19→22:32)
[2017-10-30] MEDS: CARBIDOPA/LEVODOPA 25-100 MG TABLET PO SCH (22:29)
[2017-10-31] MEDS: OXYCODONE-ACETAMINOPHEN 5-325 MG TABLET PO PRN (02:13)
[2017-10-31] MEDS: BENZOCAINE/MENTHOL SORE THROAT LOZENGE BUCCAL PRN (08:49)
[2017-10-31] MEDS: SODIUM CHLORIDE NASAL SPRAY 44 ML NAREB SCH (11:07)
[2017-10-31] MEDS: PROPRANOLOL HCL 10 MG TABLET PO SCH (11:07)
--- NOTE | 2017-10-31 11:07 | PDOC PROGRESS REPORT ---
Subjective Progress Note for:: 10/31/17 Subjective:: patient comfortable, tolerating full liquid diet well, no c/o abdominal discomfort Reason For Visit: K44.9 DIAPHRAGMATIC HERNIA WITHOUT OBSTRUCTION OR Physical Exam Vital Signs: Temp Pulse Resp BP Pulse Ox 98.1 F 70 20 136/73 H 100 10/31/17 05:05 10/31/17 05:05 10/31/17 05:05 10/31/17 05:05 10/31/17 05:05 Intake & Output 10/30/17 10/31/17 11/01/17 06:59 06:59 06:59 Intake Total 4090 972 Output Total 635 20 Balance 3455 952 Weight 73.7 kg 77.6 kg General appearance: PRESENT: no acute distress Respiratory exam: PRESENT: clear to auscultation pearl Cardiovascular exam: PRESENT: RRR GI/Abdominal exam: PRESENT: hypoactive bowel sounds, soft, tenderness - at periumbilical incision, other - incisions c/d/i Results Laboratory Results: 10/30/17 06:14 10/30/17 06:14 Impressions: Chest X-Ray 10/30/17 06:00 IMPRESSION: NO ACUTE RADIOGRAPHIC FINDING IN THE CHEST. Assessment & Plan - Diagnosis (1) Gastroesophageal reflux disease Is this a current diagnosis for this admission?: Yes - Plan Summary Plan Summary: A/ POD #2 after Toupet fundoplication for GERD VSS, AF no blood work available patient asymptomatic, tolerating full liquid diet PE unremarkable P/ Resume home meds Diet: Continue full liquid diet x 2 weeks, then reintroduce regular diet slowly and carefully (small bites, chew well, swallow slowly) No carbonated drinks x 2 weeks Activities as tolerated with the following restrictions: no straining or lifting > 10 pounds x 6 weeks No wound care needed Shower only x 2 weeks, then can bathe F/u with Surgery office Dr. Cooper in 2 weeks Percocet as prescribed for pain as needed Ice pack to painful wounds as needed Miralax / Colace OTC for constipation as needed
[2017-10-31] MEDS: TIOTROPIUM BROMIDE DPI 5 CAP/KIT (18 MCG/CAP) IH SCH (11:08)
[2017-10-31] MEDS: PANTOPRAZOLE SODIUM 40 MG VIAL IV SCH (11:08)
[2017-10-31] MEDS: TOPIRAMATE 25 MG TABLET PO SCH (11:08)
[2017-10-31] MEDS: ENOXAPARIN SODIUM INJ 40 MG/0.4 ML DISP.SYRIN SUBCUT SCH (11:10)
[2017-10-31 11:26] VITALS: BP 132/74
--- NOTE | 2017-11-01 09:56 | DISCHARGE SUMMARY E ---
Discharge Summary NAME: AURORA COOPER : 1960 AGE: 56Y ADMITTED: 10/29/2017 DISCHARGED: 10/31/2017 FINAL DIAGNOSIS: Gastroesophageal reflux. PROCEDURE: Esophageal fundoplication Toupet type. COMPLICATIONS: None. HOSPITAL COURSE: This is a 56-year-old female with a history of gastroesophageal reflux disease who underwent extensive preoperative evaluation, and on October 29 she was admitted and underwent a robotic Toupet esophageal fundoplication. The procedure was uneventful. The patient was transferred to the floor. Postop course was unremarkable. Vital signs remained stable. Diet was advanced to a clear full liquid diet, which was well tolerated. PHYSICAL EXAMINATION: Unremarkable with abdomen soft. The incision was clean, dry, intact. Blood work was normal except for white blood cell count to 12.3 on October 30. On the day of discharge, the patient had no complaints. She had stable vital signs. Physical exam is unremarkable with abdomen soft, hypoactive bowel sounds. Incision is clean, dry, intact. DISCHARGE ORDERS: The patient was discharged home on October 31. She was given a followup appointment with Dr. Cooper in the office in 2 weeks and she was given Percocet p.r.n. for pain. She was instructed to take Miralax or Colace as needed for constipation, shower only for 2 weeks. After all this, she can bathe. Activity is as tolerated with no lifting more than 10 pounds or straining for about 6 weeks. DIET: Currently, the patient was instructed to follow a full liquid diet and no carbonated beverage for 2 weeks. Afterwards, she can advance to regular diet slowly, small bites, and chewing well. DICTATING PHYSICIAN: SENG VILLALPANDO M.D. [id number] PHY#: [id number] ID: [id number] JOB#: [id number] ACCT: [id number] cc:Pierce JOHNSON M.D. > MTDD
== END 2017-10-31 11:35 | disposition home or self-care (01) ==
LOC: OROUT 06:54 → 2N 15:30 → OROUT 10-31 11:35
PROVIDERS: ATTEND Surgery
DX: K44.9 Diaphragmatic hernia without obstruction or gangrene (principal); K21.9 Gastro-esophageal reflux disease without esophagitis; J44.9 Chronic obstructive pulmonary disease, unspecified; E78.00 Pure hypercholesterolemia, unspecified; F17.210 Nicotine dependence, cigarettes, uncomplicated; I10 Essential (primary) hypertension; Z79.899 Other long term (current) drug therapy; Z79.51 Long term (current) use of inhaled steroids; Z88.0 Allergy status to penicillin
CPT/HCPCS: 43235; 43282; S2900; 36415; 71045; 790; 80053; 84132; 85025; 85027; 86850; 86900; 86901; 93005; 93010; 94799; J0131; J0330; J1100; J1170; J1885; J2060; J2250; J2270; J2405; J2704; J3010; J3370; J3490; J7060; Q9968; S0028; S0164

== ENCOUNTER → 2017-12-10 | Outpatient (CLI) | payer MEDICAID ==
--- NOTE | 2017-12-10 16:04 | RADIOLOGY REPORT (SQ) ---
EXAM DESCRIPTION: BARIUM SWALLOW ESOPHAGUS COMPLETED DATE/TIME: 12/10/2017 8:51 am REASON FOR STUDY: DYSPHAGIA R13.10 DYSPHAGIA, UNSPECIFIED COMPARISON: Barium swallow 09/13/2017. TECHNIQUE: Under fluoroscopic guidance, patient ingested effervescent granules followed by thick and thin barium. Fluoroscopic spot images and routine radiographic images acquired and stored on PACS. 12 MM BARIUM TABLET GIVEN: The patient swallowed a 12 mm barium tablet which passed easily through th e esophagus and into the stomach without delay. LIMITATIONS: None. FLUOROSCOPY TIME: FLUORO TIME: 2 minutes 5 images saved to PACS. FINDINGS: NEUROMUSCULAR COORDINATION OF SWALLOW: Normal. No aspiration. ESOPHAGEAL MOTILITY: Normal peristalsis. No esophageal spasm. ESOPHAGEAL MUCOSA: Normal mucosa without masses or ulceration. GASTRO-ESOPHAGEAL JUNCTION: No hiatal hernia or reflux. NON-GI TRACT STRUCTURES: No significant finding. OTHER: No other significant finding. IMPRESSION: NORMAL DOUBLE CONTRAST BARIUM SWALLOW. RECOMMENDATION: None COMMENT: None Quality ID [id number]: Final reports for procedures using fluoroscopy that document radiation exposure trey shaw[place], or exposure time and number of fluorographic images (if radiation exposure indices are not avail able) TECHNICAL DOCUMENTATION: JOB ID: [id number] [employer]- All Rights Reserved Reading location - IP/workstation name: [email or web address] [email or web address]
== END ==
LOC: RAD 08:13
PROVIDERS: ATTEND Surgery
DX: R13.10 Dysphagia, unspecified (principal)
CPT/HCPCS: 74220

== ENCOUNTER 2017-12-24 08:48 | Emergency (ER) | payer MEDICAID ==
[2017-12-24] MEDS ORDERED: NORMAL SALINE 1000 ML 1,000 ML IV ONE (09:33)
[2017-12-24] MEDS ORDERED: METOCLOPRAMIDE HCL INJ/PF 10 MG/2 ML SDV IV ONE (09:34)
--- NOTE | 2017-12-24 09:34 | ER Document Report ---
ED General - General Chief Complaint: Abdominal Pain >50 Stated Complaint: VOMITING/ABDOMINAL PAIN Time Seen by Provider: 12/24/17 09:04 TRAVEL OUTSIDE OF THE [place] IN LAST 30 DAYS: No - HPI Patient complains to provider of: vomiting Onset: Other - Is a 57-year-old female with a history of hernia repair approximately 1 month prior presents for evaluation of persistent nausea and vomiting since. She is a chronic abdominal pain leading up to the procedure, she was seen by Dr. Cooper who subsequently referred her for a gastric emptying study this morning because of her chronic pain issues and recurrent vomiting at which time she vomited sandwich she was supposed to eat so was referred to the emergency room. She denies any fevers or chills, denies any chest pain or shortness of breath, endorses fatigue, abdominal pain, recurrent loose watery stools as well. Nothing is seem to make it any better, nothing makes it worse. - Related Data Allergies/Adverse Reactions: fentanyl [Fentanyl] Allergy (Severe, Verified 12/24/17 08:51) Anaphylaxis Penicillins Allergy (Mild, Verified 12/24/17 08:51) rash w/scars Past Medical History - General Information source: Patient - Social History Smoking Status: Current Every Day Smoker Chew tobacco use (# tins/day): No Frequency of alcohol use: Occasional Drug Abuse: None Family History: Reviewed & Not Pertinent, Other Patient has suicidal ideation: No Patient has homicidal ideation: No - Past Medical History Cardiac Medical History: Reports: Hx Heart Attack - "slight [place]", Hx Hypertension Denies: Hx Coronary Artery Disease Pulmonary Medical History: Reports: Hx Bronchitis Denies: Hx Asthma, Hx COPD, Hx Pneumonia Neurological Medical History: Reports: Hx Migraine. Denies: Hx Cerebrovascular Accident, Hx Seizures Renal/ Medical History: Reports: Hx Kidney Stones. Denies: Hx Peritoneal Dialysis GI Medical History: Reports: Hx Gastroesophageal Reflux Disease Musculoskeletal Medical History: Reports Hx Arthritis - OA FREEDOM KNEES Psychiatric Medical History: Denies: Hx Depression Past Surgical History: Reports: Hx Cholecystectomy. Denies: Hx Hysterectomy - Immunizations Hx Diphtheria, Pertussis, Tetanus Vaccination: Yes Hx Pneumococcal Vaccination: 12/06/14 Review of Systems - Review of Systems -: Yes All other systems reviewed and negative Physical Exam - Vital signs Vitals: Temp Pulse Resp BP Pulse Ox 97.7 F 76 16 134/86 H 98 12/24/17 08:59 12/24/17 08:59 12/24/17 08:59 12/24/17 08:59 12/24/17 08:59 - General General appearance: Appears well In distress: None - HEENT Head: Normocephalic Eyes: Normal Conjunctiva: Normal Cornea: Normal - Respiratory Respiratory status: No respiratory distress Chest status: Nontender Breath sounds: Normal Chest palpation: Normal - Cardiovascular Rhythm: Regular Heart sounds: Normal auscultation Murmur: No - Abdominal Inspection: Healed incision - Multiple well-healed port incision sites on the abdomen, the abdomen is nondistended, diffusely tender without any rebound or guarding - Back Back: Normal - Extremities General upper extremity: Normal inspection, Nontender, Normal ROM, Normal strength General lower extremity: Normal inspection, Nontender, Normal ROM, Normal strength - Neurological Neuro grossly intact: Yes Cognition: Normal Orientation: AAOx4 Leena Coma Scale Eye Opening: Spontaneous [place] Coma Scale Verbal: Oriented [place] Coma Scale Motor: Obeys Commands [place] Coma Scale Total: 15 Speech: Normal Cranial nerves: Normal Motor strength normal: LUE, RUE, LLE, RLE - Psychological Associated symptoms: Normal affect Course - Re-evaluation Re-evalutation: 12/24/17 12:01 This 57-year-old female presents from outpatient radiology for evaluation of recurrent episodes of emesis. She has had recurrent episodes of emesis for the last month. Nothing has seemed to make it better she has been evaluated multiple times for this including evaluation by surgeon on multiple occasions, she did undergo repair of a small hernia. She notes that she is unable to tolerate any oral sometimes vomits sometimes has profuse diarrhea. Examination she is overall well-appearing, appears well-hydrated, is alert and oriented with a reassuring abdominal examination. Because of the concern for possible gastric emptying problems will obtain a CT with oral contrast as she was unable to tolerate the MR radiograph. Will reassess following administration of analgesia as well as antiemetic. 12/24/17 17:35 This patient was able to tolerate p.o. in the emergency department, her chemistry as well as her CBC is reassuring. Her abdominal CT did not demonstrate any obvious abnormality and she was able to tolerate p.o. contrast. Her abdominal examination on reassessment is reassuring. Given her well appearance ability to tolerate p.o. and to scheduled follow-up believe this patient is appropriate for outpatient management and discharge. She is in agreement the current course of action will give her a course of Reglan for home use. She was given strict return precautions as well and well-appearing at the time of discharge. - Vital Signs Vital signs: Temp Pulse Resp BP Pulse Ox 98.3 F 15 L 16 136/83 H 86 L 12/24/17 13:13 12/24/17 13:13 12/24/17 13:13 12/24/17 13:13 12/24/17 13:13 - Laboratory Result Diagrams: 12/24/17 10:00 12/24/17 10:00 Laboratory results interpreted by me: 12/24/17 10:00 MCV 79 L MCH 25.9 L RDW 15.3 H Eosinophils % 9.5 H Absolute Eosinophils 0.7 H Discharge - Discharge Clinical Impression: Vomiting Qualifiers: Vomiting type: unspecified Vomiting Intractability: non-intractable Nausea presence: with nausea Qualified Code(s): R11.2 - Nausea with vomiting, unspecified Abdominal pain Qualifiers: Abdominal location: generalized Qualified Code(s): R10.84 - Generalized abdominal pain Condition: Good Disposition: HOME, SELF-CARE Instructions: Abdominal Pain ([facility]), Antinausea Medication ([facility]), Reglan ([facility]), Vomiting ([facility]) Additional Instructions: Your seen today in the emergency department for your vomiting. On evaluation including a CAT scan as well as blood work. You were given a prescription for Reglan. Reglan is useful in the treatment of vomiting. Use the Reglan as directed. Start ranitidine daily to help with your reflux. Follow-up as previously scheduled with your primary physician. Return for worsening fevers or chills inability to eat or drink or worsening of your symptoms. Prescriptions: Metoclopramide HCl [Reglan 10 mg Tablet] 10 mg PO BID 15 Days #30 tablet Ranitidine HCl 150 mg PO DAILY #20 tablet Referrals: BRITTA SCANLON DO [Primary Care Provider] - Follow up as needed
[2017-12-24 10:17] LABS: ABSOLUTE BASOPHILS # (AUTO) 0.1 10^3/uL (0.0-0.2); ABSOLUTE EOSINOPHILS # (AUTO) 0.7 10^3/uL (0.0-0.6); ABSOLUTE LYMPHOCYTES (AUTO) 2.3 10^3/uL (0.5-4.7); ABSOLUTE MONOCYTES (AUTO) 0.4 10^3/uL (0.1-1.4); ABSOLUTE NEUT (AUTO) 3.4 10^3/uL (1.7-8.2); BASOPHILS % (AUTO) 1.1 % (0-2); EOSINOPHILS % (AUTO) 9.5 % (0-6); HEMATOCRIT 39.5 % (36.0-47.0); HEMOGLOBIN 12.9 g/dL (12.0-15.5); LYMPHOCYTES % (AUTO) 33.9 % (13-45); MEAN CORPUSCULAR HEMOGLOBIN 25.9 pg (27.0-33.4); MEAN CORPUSCULAR HGB CONC 32.7 g/dL (32.0-36.0); MEAN CORPUSCULAR VOLUME 79 fl (80-97); MONOCYTES % (AUTO) 5.6 % (3-13); PLATELET COUNT 399 10^3/uL (150-450); RED BLOOD COUNT 4.98 10^6/uL (3.72-5.28); RED CELL DISTRIBUTION WIDTH 15.3 % (11.5-14.0); SEGMENTED NEUTROPHILS % (AUTO) 49.9 % (42-78); TOTAL CELLS COUNTED % (AUTO) 100 %; WHITE BLOOD COUNT 6.9 10^3/uL (4.0-10.5)
[2017-12-24 10:29] LABS: ALANINE AMINOTRANSFERASE 22 U/L (9-52); ALBUMIN 4.2 g/dL (3.5-5.0); ALKALINE PHOSPHATASE 89 U/L (38-126); ANION GAP 9 (5-19); ASPARTATE AMINO TRANSFERASE 22 U/L (14-36); BILIRUBIN,DIRECT 0.3 mg/dL (0.0-0.4); BILIRUBIN,TOTAL 0.7 mg/dL (0.2-1.3); BLOOD UREA NITROGEN 11 mg/dL (7-20); CALCIUM 9.9 mg/dL (8.4-10.2); CARBON DIOXIDE 25 mmol/L (22-30); CHLORIDE 107 mmol/L (98-107); GLUCOSE 82 mg/dL (75-110); LIPASE 79.6 U/L (23-300); POTASSIUM 4.6 mmol/L (3.6-5.0); SODIUM 141.1 mmol/L (137-145); TOTAL PROTEIN 7.8 g/dL (6.3-8.2)
--- NOTE | 2017-12-24 12:27 | RADIOLOGY REPORT (SQ) ---
EXAM DESCRIPTION: CT ABD/PELVIS WITH IV ORAL COMPLETED DATE/TIME: 12/24/2017 12:13 pm REASON FOR STUDY: concern for obstruction post hernia repair Abdominal pain, nausea and vomiting. COMPARISON: 10/28/2017. TECHNIQUE: CT scan of the abdomen and pelvis performed using helical scanning technique with dynamic intravenous contrast injection. No oral contrast. Images reviewed with lung, soft tissue, and bone windows. Reconstructed coronal and sagittal MPR images reviewed. Delayed images for evaluation of the urinary system also acquired. All images stored on PACS. All CT scanners at this facility use dose modulation, iterative reconstruction, and/or weight based d osing when appropriate to reduce radiation dose to as low as reasonably achievable (ALARA). [facility]: Dose Right [facility]: CareDose [facility]: Dose Right [facility]: Teradose 4D [facility]: GenePeeks CONTRAST TYPE AND DOSE: contrast/concentration: Isovue 350.00 mg/ml; Total Contrast Delivered: 64.0 ml; Total Saline Delivered: 68.0 ml RENAL FUNCTION: BUN 11 creatinine 0.72. RADIATION DOSE: CT Rad equipment meets quality standard of care and radiation dose reduction techniq ues were employed. CTDIvol: 6.7 - 9.5 mGy. DLP: 784 mGy-cm.. LIMITATIONS: None. FINDINGS: LOWER CHEST: No significant findings. No nodules or infiltrates. LIVER: Normal size. No masses. No dilated ducts. SPLEEN: Normal size. No focal lesions. PANCREAS: No masses. No significant calcifications. No adjacent inflammation or peripancreatic fluid collections. Pancreatic duct not dilated. GALLBLADDER: No identified stones by CT criteria. No inflammatory changes to suggest cholecystitis. ADRENAL GLANDS: No significant masses or asymmetry. RIGHT KIDNEY AND URETER: No solid masses. No significant calcifications. No hydronephrosis or hyd roureter. LEFT KIDNEY AND URETER: Small cortical cysts. No solid masses. No significant calcifications. No hydronephrosis or hydroureter. AORTA AND VESSELS: No aneurysm. No dissection. Renal arteries, SMA, celiac without stenosis. RETROPERITONEUM: No retroperitoneal adenopathy, hemorrhage or masses. BOWEL AND PERITONEAL CAVITY: Contrast present in the stomach, small bowel, and colon. No masses or i nflammatory changes. No free fluid or peritoneal masses. APPENDIX: Normal. PELVIS: Stable nodular mass on the posterior uterine fundus, presumably a uterine fibroid. . No nathan e fluid. Normal bladder. ABDOMINAL WALL: No masses. No hernias. BONES: No significant or acute findings. OTHER: No other significant finding. IMPRESSION: 1. UNREMARKABLE APPEARANCE OF THE GI TRACT. SPECIFICALLY NO EVIDENCE OF BOWEL OBSTRUCTION. NO INFLA MMATORY CHANGES. 2. STABLE INCIDENTAL FINDINGS INCLUDING SMALL CORTICAL CYSTS IN THE LEFT KIDNEY AND PROBABLE UTERINE FIBROID. NO OTHER SIGNIFICANT OR ACUTE FINDING IN THE ABDOMEN OR PELVIS ON CT SCAN WITH IV CONTRAST. TECHNICAL DOCUMENTATION: JOB ID: [id number] Quality ID # [id number]: Final reports with documentation of one or more dose reduction techniques (e.g., Au tomated exposure control, adjustment of the mA and/or kV according to patient size, use of iterative reconstruction technique) 2010 [employer]- All Rights Reserved Reading location - IP/workstation name: [email or web address]
[2017-12-24 13:14] VITALS: BP 136/83
== END 2017-12-24 13:14 | disposition home or self-care (01) ==
LOC: ER 08:48
DX: R11.2 Nausea with vomiting, unspecified (principal); R10.84 Generalized abdominal pain; Z98.890 Other specified postprocedural states; F17.200 Nicotine dependence, unspecified, uncomplicated; I10 Essential (primary) hypertension; Z88.5 Allergy status to narcotic agent; Z88.0 Allergy status to penicillin; Z87.442 Personal history of urinary calculi; Z90.49 Acquired absence of other specified parts of digestive tract
CPT/HCPCS: 99284; 96360; 36415; 83690; 85025; 80053; 74177; J2765; J7030

== ENCOUNTER → 2017-12-24 | Outpatient (CLI) | payer MEDICAID ==
--- NOTE | 2017-12-24 09:10 | RADIOLOGY REPORT (SQ) ---
EXAM DESCRIPTION: NM GASTRIC EMPTYING STUDY COMPLETED DATE/TIME: 12/24/2017 8:59 am REASON FOR STUDY: ABDOMINAL PAIN R10.9 UNSPECIFIED ABDOMINAL PAIN R11.2 NAUSEA WITH VOMITING, UNSP ECIFIED COMPARISON: None. RADIONUCLIDE AND DOSE: 2.1 millicuries Tc-99m Sulfur Colloid. Patient instructed to eat Sulfur Colloid injected 4 oz egg white or egg, 2 pieces of white bread toas kristopher, 30 grams jelly or jam, and 120ml of water. The route of agent administration: Oral. TECHNIQUE: A single image was acquired immediately after ingesting the radiopharmaceutical. Patient subsequently developed severe pain with nausea and vomiting and the study was discontinued. The [facility]'s physician's office was contacted and the patient was taken to the emergency room. LIMITATIONS: Study discontinued due to severe pain with nausea and vomiting. FINDINGS: Study discontinued due to severe pain with nausea and vomiting. IMPRESSION: STUDY DISCONTINUED DUE TO SEVERE PAIN WITH NAUSEA AND VOMITING. TECHNICAL DOCUMENTATION: JOB ID: [id number] [employer]- All Rights Reserved Reading location - IP/workstation name: [email or web address]
== END ==
LOC: RAD 07:33
PROVIDERS: ATTEND Surgery
DX: R10.9 Unspecified abdominal pain (principal); R11.2 Nausea with vomiting, unspecified
CPT/HCPCS: 78264; A9541

== ENCOUNTER 2017-12-31 08:34 | Day surgery (SDC) | payer MEDICAID ==
--- NOTE | 2017-12-28 08:34 | EKG REPORT ---
SEVERITY:- NORMAL ECG - SINUS RHYTHM : Confirmed by: Chelsie Avendano 28-Dec-2017 08:32:43
[~2017-12-31 08:34] MED LIST changes: -LIDOCAINE 0.5% INJ-PF (5 MG/ML) 50 ML SDV SUBCUT PRN; -VANCOMYCIN HCL 1,000 MG in DEXTROSE 5%-WATER 250 ML IV PRN
[2017-12-31] MEDS ORDERED: MIDAZOLAM 2 MG/2 ML INJ ONE (10:37)
[2017-12-31] MEDS ORDERED: PROPOFOL INJ 200 MG/20 ML VIAL IV ONE (10:37)
[2017-12-31] MEDS ORDERED: MEPERIDINE HCL/PF INJ 25 MG/1 ML DISP.SYRIN IV PRN (11:01)
[2017-12-31] MEDS ORDERED: PROMETHAZINE HCL INJ 25 MG/1 ML VIAL IV PRN ×2 (11:01)
[2017-12-31] MEDS ORDERED: DIPHENHYDRAMINE HCL 50 MG/ML VIAL IV PRN (11:01)
[2017-12-31] MEDS ORDERED: ALBUTEROL SULFATE 0.083% NEB 2.5 MG/3 ML AMPUL NEB ONE (11:15)
--- NOTE | 2017-12-31 11:15 | Discharge Summary ---
Discharge Summary (SDC) - Discharge Final Diagnosis: Antral gastritis Date of Surgery: 12/31/17 Discharge Date: 12/31/17 Condition: Stable Treatment or Instructions: Discharge home. Diet as tolerated. Activity, nonstrenuous. Follow-up with me in 7-10 days. Referrals: BRITTA SCANLON DO [Primary Care Provider] - Discharge Diet: As Tolerated Respiratory Treatments at Home: Deep Breathing/Coughing, Incentive Spirometer Discharge Activity: Activity As Tolerated Home Care Assistance: None Needed Report the Following to Your Physician Immediately: Shortness of Breath, Nausea , Vomiting, Increase in Pain, Fever over 101 Degrees, Redness, Swelling, Warmth
--- NOTE | 2017-12-31 11:19 | Operative Report ---
Nonrecallable Operative Report DATE OF SURGERY: 12/31/17 PREOPERATIVE DIAGNOSIS: Nausea, vomiting, weight loss POSTOPERATIVE DIAGNOSIS: 1. Antral gastritis. 2. Fundoplication appears intact. 3. No obvious hiatal hernia recurrence. OPERATION: EGD with biopsy SURGEON: AMY LIMON ANESTHESIA: LMAC TISSUE REMOVED OR ALTERED: Antral biopsy COMPLICATIONS: None apparent ESTIMATED BLOOD LOSS: Minimal PROCEDURE: Drains/implants: None. Procedure in detail: After informed consent was obtained, the patient was brought into the operating room and laid in the left lateral decubitus position. The endoscope was passed down the oropharynx, down the esophagus, and into the stomach. The scope passed easily through the hiatus. The stomach was insufflated with air. Immediately there was noted to be gastritis throughout the stomach, worse in the antrum. There were petechiae, prominent gastric folds, and small areas of ulceration. The scope was passed into the first and second portions of the duodenum, which appeared normal. The scope was pulled back into the antrum, where biopsy was taken to rule out H. pylori infection. A retroflexion maneuver was then performed in the body of the stomach. The patient's previous fundoplication was intact. There is no large, recurrent hiatal hernias. The scope was then brought up into the distal esophagus. No evidence of reflux esophagitis was present. The scope was withdrawn up the remainder of the esophagus. The remainder of the esophagus was smooth in contour without masses, lesions, ulcerations, or other abnormalities. The scope was removed from the patient, and the procedure was concluded. All sponge, instrument, and needle counts were correct x2. Condition: Stable.
[2017-12-31 12:52] VITALS: BP 119/72
== END 2017-12-31 12:45 | disposition home or self-care (01) ==
LOC: OROUT 08:34
PROVIDERS: ATTEND Surgery
DX: K29.50 Unspecified chronic gastritis without bleeding (principal); R63.4 Abnormal weight loss; I10 Essential (primary) hypertension; J44.9 Chronic obstructive pulmonary disease, unspecified; F17.210 Nicotine dependence, cigarettes, uncomplicated; Z88.0 Allergy status to penicillin; E78.00 Pure hypercholesterolemia, unspecified; G43.909 Migraine, unspecified, not intractable, without status migrainosus; K44.9 Diaphragmatic hernia without obstruction or gangrene; Z79.899 Other long term (current) drug therapy; Z79.51 Long term (current) use of inhaled steroids; Z68.25 Body mass index [BMI] 25.0-25.9, adult; K21.9 Gastro-esophageal reflux disease without esophagitis
CPT/HCPCS: 43239; 93005; 36415; 84132; 88305 ×2; 93010; J2250; J2704; 731

== ENCOUNTER → 2018-06-14 | Outpatient (CLI) | payer MEDICAID ==
[2018-06-14 14:27] LABS: ABSOLUTE BASOPHILS # (AUTO) 0.1 10^3/uL (0.0-0.2); ABSOLUTE EOSINOPHILS # (AUTO) 0.8 10^3/uL (0.0-0.6); ABSOLUTE LYMPHOCYTES (AUTO) 2.8 10^3/uL (0.5-4.7); ABSOLUTE MONOCYTES (AUTO) 0.6 10^3/uL (0.1-1.4); ABSOLUTE NEUT (AUTO) 4.3 10^3/uL (1.7-8.2); EOSINOPHILS % (AUTO) 9.5 % (0-6); HEMATOCRIT 41.7 % (36.0-47.0); HEMOGLOBIN 13.9 g/dL (12.0-15.5); LYMPHOCYTES % (AUTO) 32.6 % (13-45); MEAN CORPUSCULAR HEMOGLOBIN 26.5 pg (27.0-33.4); MEAN CORPUSCULAR HGB CONC 33.2 g/dL (32.0-36.0); MEAN CORPUSCULAR VOLUME 80 fl (80-97); MONOCYTES % (AUTO) 6.4 % (3-13); PLATELET COUNT 391 10^3/uL (150-450); RED BLOOD COUNT 5.24 10^6/uL (3.72-5.28); RED CELL DISTRIBUTION WIDTH 15.4 % (11.5-14.0); SEGMENTED NEUTROPHILS % (AUTO) 50.5 % (42-78); TOTAL CELLS COUNTED % (AUTO) 100 %; WHITE BLOOD COUNT 8.6 10^3/uL (4.0-10.5)
[2018-06-14 14:32] LABS: APPEARANCE,URINE SLIGHTLY-CLOUDY; BILIRUBIN,URINE NEGATIVE (NEGATIVE); COLOR,URINE YELLOW; GLUCOSE, URINE NEGATIVE (NEGATIVE); KETONES,URINE NEGATIVE (NEGATIVE); LEUKOCYTE ESTERASE,URINE NEGATIVE (NEGATIVE); NITRITE,URINE NEGATIVE (NEGATIVE); PROTEIN,URINE NEGATIVE (NEGATIVE); URINE SPECIFIC GRAVITY 1.016
[2018-06-14 14:54] LABS: ANION GAP 7 (5-19); BLOOD UREA NITROGEN 14 mg/dL (7-20); CALCIUM 10.6 mg/dL (8.4-10.2); CARBON DIOXIDE 27 mmol/L (22-30); CHLORIDE 108 mmol/L (98-107); GLUCOSE 84 mg/dL (75-110); POTASSIUM 4.5 mmol/L (3.6-5.0); SODIUM 142.1 mmol/L (137-145)
--- NOTE | 2018-06-14 15:13 | RADIOLOGY REPORT (SQ) ---
EXAM DESCRIPTION: CHEST PA/LATERAL COMPLETED DATE/TIME: 06/14/2018 2:11 pm REASON FOR STUDY: PRE-OP COMPARISON: CT chest 07/02/2017 AP chest 10/30/2017 Two-view chest 01/01/2016 EXAM PARAMETERS: NUMBER OF VIEWS: two views TECHNIQUE: Digital Frontal and Lateral radiographic views of the chest acquired. RADIATION DOSE: NA LIMITATIONS: none FINDINGS: LUNGS AND PLEURA: No opacities, masses or pneumothorax. No pleural effusion. MEDIASTINUM AND HILAR STRUCTURES: No masses or contour abnormalities. HEART AND VASCULAR STRUCTURES: Heart normal size. No evidence for failure. BONES: No acute findings. HARDWARE: None in the chest. OTHER: No other significant finding. IMPRESSION: NO SIGNIFICANT RADIOGRAPHIC FINDING IN THE CHEST. TECHNICAL DOCUMENTATION: JOB ID: [id number] [employer]- All Rights Reserved Reading location - IP/workstation name: [email or web address]
--- NOTE | 2018-06-15 00:05 | EKG REPORT ---
SEVERITY:- NORMAL ECG - SINUS RHYTHM : Confirmed by: Chelsie Avendano 15-Jun-2018 00:04:10
== END ==
LOC: OD 13:41
PROVIDERS: ATTEND Orthopaedic Surgery
DX: Z01.810 Encounter for preprocedural cardiovascular examination (principal); Z01.811 Encounter for preprocedural respiratory examination; Z01.89 Encounter for other specified special examinations; J44.9 Chronic obstructive pulmonary disease, unspecified; M17.11 Unilateral primary osteoarthritis, right knee
CPT/HCPCS: 36415; 71046; 80048; 81001; 85025; 93005; 93010

== ENCOUNTER 2018-07-04 05:26 | Day surgery (SDC) | payer MEDICAID ==
[~2018-07-04 05:26] MED LIST changes: +BUPIVACAINE INJ/PF LIPOSOME/PF 266 MG/20 ML SDV INJ PRN; +CEFAZOLIN INJ 1 GM VIAL IV PRN; +CLINDAMYCIN 600 MG/D5W RTU 600 MG/50 ML RTUPB IV PRN; +IBUPROFEN 800 MG in NORMAL SALINE 250 ML IV PRN; +LIDOCAINE 0.5% INJ-PF (5 MG/ML) 50 ML SDV SUBCUT PRN; +OXYCODONE HCL SR 10 MG TABLET PO PRN; +PANTOPRAZOLE SODIUM 20 MG TABLET.DR PO PRN; +VANCOMYCIN HCL 1,000 MG in DEXTROSE 5%-WATER 250 ML IV PRN
[2018-07-04] MEDS ORDERED: OXYCODONE HCL SR 10 MG TABLET PO ONE (05:28)
[2018-07-04] MEDS ORDERED: PANTOPRAZOLE SODIUM 20 MG TABLET.DR PO ONE (05:28)
[2018-07-04] MEDS ORDERED: CEFAZOLIN INJ 1 GM VIAL ONE (05:29)
[2018-07-04] MEDS ORDERED: DEXAMETHASONE SOD PHOSPHATE INJ 4 MG/1 ML VIAL ONE (06:44)
[2018-07-04] MEDS ORDERED: MIDAZOLAM 2 MG/2 ML INJ ONE (06:44)
[2018-07-04] MEDS ORDERED: TRANEXAMIC ACID INJ/PF 1,000 MG/10 ML SDV IV ONE (06:44)
[2018-07-04] MEDS ORDERED: FENTANYL CITRATE INJ/PF 100 MCG/2 ML AMPUL ONE (06:44)
[2018-07-04] MEDS ORDERED: MORPHINE SULFATE 10 MG/ML INJ ONE (06:44)
[2018-07-04] MEDS ORDERED: ONDANSETRON HCL INJ/PF 4 MG/2 ML SDV ONE (06:44)
[2018-07-04] MEDS ORDERED: PROPOFOL INJ 200 MG/20 ML VIAL IV ONE (06:45)
[2018-07-04] MEDS ORDERED: ACETAMINOPHEN 1,000 MG/100 ML RTUPB IV ONE (06:45)
[2018-07-04] MEDS ORDERED: BUPIVACAINE HCL 0.5%-EPI 1:200000 INJ/PF 30 ML VIAL ONE (07:07)
[2018-07-04] MEDS ORDERED: THROMBIN (BOVINE) TOPICAL 20000 UNIT VIAL ONE (07:07)
[2018-07-04] MEDS ORDERED: DIPHENHYDRAMINE HCL 50 MG/ML VIAL ONE (07:36)
[2018-07-04] MEDS ORDERED: PROMETHAZINE HCL INJ 25 MG/1 ML VIAL IV PRN ×2 (08:11)
[2018-07-04] MEDS ORDERED: DIPHENHYDRAMINE HCL 50 MG/ML VIAL IV PRN ×2 (08:11→08:21)
[2018-07-04] MEDS ORDERED: ACETAMINOPHEN 325 MG TABLET PO PRN (08:21)
[2018-07-04] MEDS ORDERED: MAG HYDROX/AL HYDROX/SIMETH SUSP 30 ML UDCUP PO PRN (08:21)
[2018-07-04] MEDS ORDERED: MORPHINE SULFATE 10 MG/ML INJ IV PRN ×3 (08:21)
[2018-07-04] MEDS ORDERED: OXYCODONE HCL IR 5 MG TABLET PO PRN (08:21)
[2018-07-04] MEDS ORDERED: ONDANSETRON HCL INJ/PF 4 MG/2 ML SDV IV PRN (08:21)
[2018-07-04] MEDS ORDERED: ZOLPIDEM TARTRATE 5 MG TABLET PO PRN (08:21)
[2018-07-04] MEDS ORDERED: ONDANSETRON 4 MG TAB.RAPDIS PO PRN (08:21)
[2018-07-04] MEDS ORDERED: RINGERS SOLUTION,LACTATED 1,000 ML IV PRN (08:21)
--- NOTE | 2018-07-04 08:27 | Operative Report ---
Operative Report DATE OF SURGERY: 07/04/18 PREOPERATIVE DIAGNOSIS: Right right knee arthritis OPERATION: Right knee arthroplasty SURGEON: SHEREEN CRAIG ANESTHESIA: Spinal TISSUE REMOVED OR ALTERED: Bone to pathology ESTIMATED BLOOD LOSS: 50 PROCEDURE: Implants used: Femur: Ricki triathlon size 4 CR uncemented femur Tibia: 4 uncemented tibia Tibial liner: 9 mm CS insert Patella: 32 mm uncemented patella Procedure with the patient supine on the operating table the right the limb is prepped and draped in a sterile fashion. The limb was elevated for exsanguination and the tourniquet inflated to 280 torr. A standard midline median parapatellar approach the knee is taken. Access is gained to the femoral canal through the intercondylar notch. Intramedullary alignment instrumentation used to resect 10 mm of distal femur in 5 of valgus. Sizing guide indicated a size 4 femur. Appropriate cutting jig is then used to fashion anterior posterior and chamfer cuts. A trial reduction femurs performed and this is judged to be adequate. Attention was next turned to the tibia. Using an extra medullary alignment system 9 millimeters was resected off the lateral tibial plateau had a posterior lateral defect. This is sized to a size 4 tibia. A trial reduction was now performed with a 4 femur and a 4 tibia using a 9 millimeters spacer. It is full extension and central patellofemoral tracking. The articular surface the patella was next resected using an oscillating saw. All trial implants were removed. the above implants are impacted into place. the tourniquet was deflated hemostasis obtained the wound is then closed in layers using interrupted Vicryl followed by aurelia. A sterile compressive dressing was applied and the patient returned to recovery room in satisfactory condition.
--- NOTE | 2018-07-04 09:31 | RADIOLOGY REPORT (SQ) ---
EXAM DESCRIPTION: KNEE RIGHT 2 VIEWS COMPLETED DATE/TIME: 07/04/2018 9:02 am REASON FOR STUDY: Post OP -Long Cassette in PACU M17.11 UNILATERAL PRIMARY OSTEOARTHRITIS, RIGHT KN EE COMPARISON: Right knee four views 11/22/2013 NUMBER OF VIEWS: Two views TECHNIQUE: Digital radiographic images of the right knee post-procedure. LIMITATIONS: None. FINDINGS: BONES: No worrisome or unexpected findings post-procedure. Bones are osteoporotic. DEVICE: Right total knee replacement with patellar resurfacing. SOFT TISSUES: No worrisome findings. Expected postoperative soft tissue changes. IMPRESSION: SATISFACTORY POSTOPERATIVE RIGHT KNEE. TECHNICAL DOCUMENTATION: JOB ID: [id number] [employer]- All Rights Reserved Reading location - IP/workstation name: [email or web address]
[2018-07-04] MEDS ORDERED: TRANEXAMIC ACID INJ/PF 1,000 MG/10 ML SDV IV PRN (11:00)
[2018-07-04] MEDS ORDERED: PROPRANOLOL HCL 10 MG TABLET PO ONE (14:00)
[2018-07-04] MEDS: IBUPROFEN 800 MG in NORMAL SALINE 250 ML IV SCH ×2 (14:25→22:03)
[2018-07-04] MEDS: MORPHINE SULFATE 10 MG/ML INJ IV PRN ×3 (14:26→23:00)
[2018-07-04] MEDS: SENNOSIDES/DOCUSATE 8.6-50 MG 1 EACH TABLET PO SCH (17:06)
[2018-07-04] MEDS: OXYCODONE HCL SR 10 MG TABLET PO SCH (17:07)
[2018-07-04] MEDS ORDERED: ASPIRIN 81 MG TABLET, ENT COATED PO SCH (18:00)
[2018-07-04] MEDS ORDERED: VANCOMYCIN HCL 1,000 MG in DEXTROSE 5%-WATER 250 ML IV ONE (20:00)
[2018-07-04] MEDS: PROPRANOLOL HCL 10 MG TABLET PO SCH (22:04)
[2018-07-05] MEDS: MORPHINE SULFATE 10 MG/ML INJ IV PRN (02:05)
[2018-07-05] MEDS: OXYCODONE HCL SR 10 MG TABLET PO SCH (05:13)
[2018-07-05] MEDS: IBUPROFEN 800 MG in NORMAL SALINE 250 ML IV SCH (05:13)
[2018-07-05 05:55] LABS: HEMATOCRIT 33.6 % (36.0-47.0); HEMOGLOBIN 10.9 g/dL (12.0-15.5); MEAN CORPUSCULAR HEMOGLOBIN 26.2 pg (27.0-33.4); MEAN CORPUSCULAR HGB CONC 32.4 g/dL (32.0-36.0); MEAN CORPUSCULAR VOLUME 81 fl (80-97); PLATELET COUNT 319 10^3/uL (150-450); RED BLOOD COUNT 4.16 10^6/uL (3.72-5.28); WHITE BLOOD COUNT 10.9 10^3/uL (4.0-10.5)
[2018-07-05] MEDS ORDERED: PANTOPRAZOLE SODIUM 40 MG TABLET.DR PO SCH (06:00)
[2018-07-05 06:22] LABS: ANION GAP 10 (5-19); BLOOD UREA NITROGEN 11 mg/dL (7-20); CALCIUM 9.5 mg/dL (8.4-10.2); CARBON DIOXIDE 25 mmol/L (22-30); CHLORIDE 104 mmol/L (98-107); GLUCOSE 92 mg/dL (75-110); POTASSIUM 4.6 mmol/L (3.6-5.0); SODIUM 139.4 mmol/L (137-145)
--- NOTE | 2018-07-05 07:06 | PDOC DISCHARGE SUMMARY ---
General - Admit/Disc Date/PCP Admission Date/Primary Care Provider: 07/04/18 05:26 BRITTA SCANLON DO Discharge Date: 07/05/18 - Additional Information Resuscitation Status: Full Code Home Medications: Albuterol Sulfate [Proair HFA Inhalation Aerosol 8.5 gm MDI] 2 puff IH Q4H PRN #1 mdi 07/02/17 Propranolol HCl [Inderal 10 mg Tablet] 10 mg PO Q12 07/30/17 Tiotropium Irene [Spiriva Handihaler 5 Cap/Kit (18 Mcg/Cap)] 1 cap IN DAILY 06/15/18 History of Present Illness History of Present Illness: AURORA COOPER is a 57 year old female 57-year-old black female with progressive right knee pain and functional disability second osteoarthritis. Patient is admitted for elective right knee arthroplasty. Hospital Course Hospital Course: Patient is admitted through the operating where she undergoes uncomplicated right knee arthroplasty. She is returned to floor in satisfactory condition. She ambulates 300 feet with physical therapy on the day of surgery. Overnight she has some issues with pain control. Compressive dressing was removed on the first postoperative morning. The underlying OpSite is clean dry and intact. Physical Exam Vital Signs: Temp Pulse Resp BP Pulse Ox 37.0 C 62 17 125/85 100 07/04/18 23:56 07/04/18 23:56 07/04/18 23:56 07/04/18 23:56 07/04/18 23:56 Intake & Output 07/04/18 07/05/18 07/06/18 06:59 06:59 06:59 Intake Total 0 4798 Output Total 50 Balance 0 4748 Weight 76.9 kg Physical Exam: Moderately built middle-aged black female lying in a hospital bed in no distress. General appearance: PRESENT: no acute distress Head exam: PRESENT: normocephalic Respiratory exam: PRESENT: unlabored Cardiovascular exam: PRESENT: RRR Pulses: PRESENT: +1 pedal pulses bilateral Vascular exam: PRESENT: normal capillary refill GI/Abdominal exam: PRESENT: soft Rectal exam: PRESENT: deferred Extremities exam: PRESENT: other - Underlying OpSite dressing is clean dry and intact. Minimal pedal edema. Distal neurovascular examination is intact. Neurological exam: PRESENT: alert, awake, oriented to person, oriented to place, oriented to time, oriented to situation. ABSENT: motor sensory deficit Psychiatric exam: PRESENT: appropriate affect, normal mood. ABSENT: homicidal ideation, suicidal ideation Skin exam: PRESENT: dry, intact, warm. ABSENT: cyanosis, rash Results Laboratory Results: 07/05/18 05:02 07/05/18 05:02 07/05/18 07/05/18 05:02 05:02 WBC 10.9 H RBC 4.16 Hgb 10.9 L Hct 33.6 L MCV 81 MCH 26.2 L MCHC 32.4 RDW 15.0 H Plt Count 319 Sodium 139.4 Potassium 4.6 Chloride 104 Carbon Dioxide 25 Anion Gap 10 BUN 11 Creatinine 0.75 Est GFR ( Amer) > 60 Est GFR (Non-Af Amer) > 60 Glucose 92 Calcium 9.5 Impressions: Knee X-Ray 07/04/18 08:22 IMPRESSION: SATISFACTORY POSTOPERATIVE RIGHT KNEE. Status: Imported from PACS Qualifiers - * PATIENT BEING DISCHARGED WITH ANY OF THE FOLLOWING DIAGNOSIS: No VTE patient discharged on overlapping Therapy?: Yes Plan Discharge Plan: Patient to be discharged home with DME and outpatient physical therapy services. Follow-up with Dr. Rojas and [facility] for surgery in 2 weeks for staple removal. Time Spent: Less than 30 Minutes
[2018-07-05] MEDS ORDERED: PRENATAL VITAMIN W DHA CAPSULE PO SCH (10:00)
[2018-07-05] MEDS: SENNOSIDES/DOCUSATE 8.6-50 MG 1 EACH TABLET PO SCH (10:17)
[2018-07-05] MEDS: PROPRANOLOL HCL 10 MG TABLET PO SCH (10:17)
[2018-07-05] MEDS ORDERED: DIPHENHYDRAMINE HCL 25 MG CAPSULE ONE (11:10)
[2018-07-05 11:29] VITALS: BP 151/74
== END 2018-07-05 11:50 | disposition home health service (06) ==
LOC: OROUT 05:26 → UNDOADMIN 05:26 → INOR 05:26 → EDSTATUS 07:30 → INOR 09:46 → 4S 09:46 → OROUT 07-05 11:50 → UNDODISIN 07-05 11:50
PROVIDERS: ATTEND Orthopaedic Surgery
DX: M17.11 Unilateral primary osteoarthritis, right knee (principal); E03.9 Hypothyroidism, unspecified; J44.9 Chronic obstructive pulmonary disease, unspecified; K21.9 Gastro-esophageal reflux disease without esophagitis; I10 Essential (primary) hypertension; F17.210 Nicotine dependence, cigarettes, uncomplicated; Z79.899 Other long term (current) drug therapy; Z88.0 Allergy status to penicillin; Z82.49 Family history of ischemic heart disease and other diseases of the circulatory system; Z90.49 Acquired absence of other specified parts of digestive tract; Z79.51 Long term (current) use of inhaled steroids
CPT/HCPCS: 36415; 85027; 80048; 88304 ×2; 88311; 73560; 94799; 97530; 97110 ×2; 97116 ×2; 97163; 97165; 27447; C1776; J2250; J3490 ×13; J0690; J1100; J1200 ×2; J3010; J2270 ×2; J2405; J7060; J7050; J2704; J3370; J0131; J1741; 01402; 88305

== ENCOUNTER 2018-09-05 05:32 | Day surgery (SDC) | payer MEDICAID ==
[~2018-09-05 05:32] MED LIST changes: -BUPIVACAINE INJ/PF LIPOSOME/PF 266 MG/20 ML SDV INJ PRN; -CEFAZOLIN INJ 1 GM VIAL IV PRN; +CLINDAMYCIN 600 MG/D5W RTU 600 MG/50 ML RTUPB IV ONE; -IBUPROFEN 800 MG in NORMAL SALINE 250 ML IV PRN; -LACTATED RINGERS 1000 ML IV PRN; -LIDOCAINE 0.5% INJ-PF (5 MG/ML) 50 ML SDV SUBCUT PRN; -OXYCODONE HCL SR 10 MG TABLET PO PRN; -PANTOPRAZOLE SODIUM 20 MG TABLET.DR PO PRN; -VANCOMYCIN HCL 1,000 MG in DEXTROSE 5%-WATER 250 ML IV PRN
[2018-09-05 06:07] LABS: APPEARANCE,URINE CLOUDY; BILIRUBIN,URINE NEGATIVE (NEGATIVE); COLOR,URINE YELLOW; GLUCOSE, URINE NEGATIVE (NEGATIVE); KETONES,URINE NEGATIVE (NEGATIVE); LEUKOCYTE ESTERASE,URINE NEGATIVE (NEGATIVE); NITRITE,URINE NEGATIVE (NEGATIVE); PROTEIN,URINE NEGATIVE (NEGATIVE); URINE SPECIFIC GRAVITY 1.025; UROBILINOGEN,URINE NEGATIVE mg/dL (<2.0)
--- NOTE | 2018-09-05 06:16 | RADIOLOGY REPORT (SQ) ---
EXAM DESCRIPTION: XR CHEST 1 VIEW COMPLETED DATE/TME: 09/05/2018 05:45 CLINICAL HISTORY: 57 years, Female, preop COMPARISON: 06/14/2018 chest NUMBER OF VIEWS: 1 TECHNIQUE: Portable chest LIMITATIONS: None. FINDINGS: The heart size is normal. Osteopenia. Lungs clear. No pneumothorax IMPRESSION: No acute cardiopulmonary process copyright 2010 [employer]- All Rights Reserved
[2018-09-05] MEDS ORDERED: MIDAZOLAM 2 MG/2 ML INJ ONE (06:27)
[2018-09-05] MEDS ORDERED: PROPOFOL INJ 200 MG/20 ML VIAL IV ONE (06:27)
[2018-09-05] MEDS ORDERED: ONDANSETRON HCL INJ/PF 4 MG/2 ML SDV ONE (06:27)
[2018-09-05] MEDS ORDERED: FENTANYL CITRATE INJ/PF 100 MCG/2 ML AMPUL ONE (06:27)
[2018-09-05 06:28] LABS: ABSOLUTE BASOPHILS # (AUTO) 0.1 10^3/uL (0.0-0.2); ABSOLUTE EOSINOPHILS # (AUTO) 0.8 10^3/uL (0.0-0.6); ABSOLUTE LYMPHOCYTES (AUTO) 2.3 10^3/uL (0.5-4.7); ABSOLUTE MONOCYTES (AUTO) 0.5 10^3/uL (0.1-1.4); ABSOLUTE NEUT (AUTO) 3.6 10^3/uL (1.7-8.2); EOSINOPHILS % (AUTO) 11.1 % (0-6); HEMATOCRIT 38.3 % (36.0-47.0); HEMOGLOBIN 12.5 g/dL (12.0-15.5); LYMPHOCYTES % (AUTO) 31.8 % (13-45); MEAN CORPUSCULAR HEMOGLOBIN 25.8 pg (27.0-33.4); MEAN CORPUSCULAR HGB CONC 32.7 g/dL (32.0-36.0); MEAN CORPUSCULAR VOLUME 79 fl (80-97); MONOCYTES % (AUTO) 6.9 % (3-13); PLATELET COUNT 366 10^3/uL (150-450); RED BLOOD COUNT 4.85 10^6/uL (3.72-5.28); RED CELL DISTRIBUTION WIDTH 15.4 % (11.5-14.0); SEGMENTED NEUTROPHILS % (AUTO) 49.2 % (42-78); TOTAL CELLS COUNTED % (AUTO) 100 %; WHITE BLOOD COUNT 7.3 10^3/uL (4.0-10.5)
[2018-09-05] MEDS ORDERED: LIDOCAINE 0.5% INJ-PF (5 MG/ML) 50 ML SDV ONE (06:30)
[2018-09-05 06:45] LABS: ANION GAP 8 (5-19); BLOOD UREA NITROGEN 11 mg/dL (7-20); CARBON DIOXIDE 23 mmol/L (22-30); CHLORIDE 109 mmol/L (98-107); GLUCOSE 101 mg/dL (75-110); POTASSIUM 4.1 mmol/L (3.6-5.0)
[2018-09-05] MEDS ORDERED: DIPHENHYDRAMINE HCL 50 MG/ML VIAL IV PRN (06:58)
[2018-09-05] MEDS ORDERED: ONDANSETRON HCL INJ/PF 4 MG/2 ML SDV IV PRN (06:58)
[2018-09-05] MEDS ORDERED: PROMETHAZINE HCL INJ 25 MG/1 ML VIAL IV PRN ×2 (06:58)
--- NOTE | 2018-09-05 07:30 | Discharge Summary ---
Discharge Summary (SDC) - Discharge Final Diagnosis: Right knee arthrofibrosis Date of Surgery: 09/05/18 Discharge Date: 09/05/18 Condition: Good Treatment or Instructions: Continue on a weightbearing as tolerated basis. Resume physical therapy as quickly as possible. Prescriptions: Oxycodone HCl 5 mg PO Q6 PRN #40 capsule PRN Reason: Referrals: BRITTA SCANLON DO [Primary Care Provider] - Discharge Diet: As Tolerated, Regular Discharge Activity: Balance Activity w/Rest Report the Following to Your Physician Immediately: Shortness of Breath, Fever over 101 Degrees, Drainage-Foul Smelling
--- NOTE | 2018-09-05 07:31 | Operative Report ---
Operative Report DATE OF SURGERY: 09/05/18 PREOPERATIVE DIAGNOSIS: Right knee arthrofibrosis following total knee arthropl asty OPERATION: Closed manipulation right knee SURGEON: SHEREEN CRAIG ANESTHESIA: Moderate Sedation PROCEDURE: With the patient sedated on the operating room table the right knee range of motion is evaluated and recorded photographically. Range of motion is approximate 5 to 90 degrees. Its manipulated into full extension and then with further flexion to 135 degrees. Both of these are documented photographically as well. The patient was then awoken and sent to the recovery room in satisfactory condition.
[2018-09-05] MEDS: HYDROMORPHONE HCL INJ/PF 2 MG/ML AMPULE ONE ×2 (07:40→07:45)
[2018-09-05] MEDS ORDERED: OXYCODONE HCL IR 5 MG TABLET ONE (08:23)
[2018-09-05] MEDS ORDERED: OXYCODONE HCL IR 5 MG TABLET PO PRN (08:24)
[2018-09-05] MEDS ORDERED: ONDANSETRON 4 MG TAB.RAPDIS SL PRN (08:25)
[2018-09-05 09:46] VITALS: BP 121/74
--- NOTE | 2018-09-06 00:39 | EKG REPORT ---
SEVERITY:- NORMAL ECG - SINUS RHYTHM : Confirmed by: Chelsie Avendano 06-Sep-2018 00:38:42
== END 2018-09-05 09:20 | disposition home or self-care (01) ==
LOC: OROUT 05:32
PROVIDERS: ATTEND Orthopaedic Surgery
DX: M24.661 Ankylosis, right knee (principal); Z96.659 Presence of unspecified artificial knee joint; M25.561 Pain in right knee; J44.9 Chronic obstructive pulmonary disease, unspecified; F17.210 Nicotine dependence, cigarettes, uncomplicated; I10 Essential (primary) hypertension; E03.9 Hypothyroidism, unspecified; K21.9 Gastro-esophageal reflux disease without esophagitis; Z79.51 Long term (current) use of inhaled steroids; Z79.899 Other long term (current) drug therapy
CPT/HCPCS: 29999; 36415; 85025; 80048; 81001; 71045; 93005; 93010; 01380; J2250; S0077; J3490 ×2; J1170; J2704; 1380; J2405; J3010

== ENCOUNTER 2018-09-28 18:03 | Emergency (ER) | payer MEDICAID ==
[2018-09-28] MEDS ORDERED: ASPIRIN 81 MG TABLET, CHEWABLE PO ONE (19:08)
--- NOTE | 2018-09-28 19:10 | ER Document Report ---
ED Medical Screen (RME) - General Chief Complaint: Chest Pain Stated Complaint: CHEST PAIN Time Seen by Provider: 09/28/18 19:08 Primary Care Provider: BRITTA SCANLON DO [Primary Care Provider] - Follow up as needed Mode of Arrival: Ambulatory Information source: Patient Notes: 57-year-old female presented to ED for complaint of chest pain that started today. She states she has had fatigue and no appetite for the last 2 weeks. She states she feels like she is lost about 20 pounds in the last 2 to 3 weeks. She has a history of high blood pressure COPD. She states she continues to smoke 1/2 pack a day and rarely drinks alcohol. She states she also has a history of cholecystectomy, Nadiya fundoplication, and a right knee replacement. Patient is alert oriented respirations regular and unlabored speaking in full sentences walks with a even steady gait. I have greeted and performed a rapid initial assessment of this patient. A comprehensive ED assessment and evaluation of the patient, analysis of test results and completion of medical decision making process will be conducted by an additional ED providers. Dictation of this chart was performed using voice recognition software; therefore, there may be some unintended grammatical errors. TRAVEL OUTSIDE OF THE [place] IN LAST 30 DAYS: No - Related Data Allergies/Adverse Reactions: fentanyl [Fentanyl] Allergy (Severe, Verified 09/28/18 18:04) Anaphylaxis Penicillins Allergy (Mild, Verified 09/28/18 18:04) rash w/scars morphine Adverse Reaction (Mild, Verified 09/28/18 18:04) Pruritis Past Medical History - Past Medical History Cardiac Medical History: Reports: Hx Congestive Heart Failure, Hx Hypertension Denies: Hx Atrial Fibrillation, Hx Coronary Artery Disease, Hx Heart Attack, Hx Hypercholesterolemia, Hx Peripheral Vascular Disease, Hx Pulmonary Embolism, Hx Heart Murmur Pulmonary Medical History: Reports: Hx Bronchitis, Hx COPD Denies: Hx Asthma, Hx Pneumonia, Hx Respiratory Failure, Hx Sleep Apnea, Hx Tuberculosis Neurological Medical History: Reports: Hx Migraine. Denies: Hx Cerebrovascular Accident, Hx Seizures Endocrine Medical History: Denies: Hx Hyperthyroidism, Hx Hypothyroidism Renal/ Medical History: Reports: Hx Kidney Stones. Denies: Hx End Stage Renal Disease, Hx Peritoneal Dialysis Malignancy Medical History: Denies: Hx Lung Cancer GI Medical History: Reports: Hx Gastroesophageal Reflux Disease, Hx Hiatal Hernia - repaired 10/29/17. Denies: Hx Crohn's Disease, Hx Irritable Bowel, Hx Liver Failure, Hx Pancreatitis, Hx Ulcer Musculoskeltal Medical History: Reports Hx Arthritis - FREEDOM KNEES, Denies Hx Fibromyalgia, Denies Hx Muscular Dystrophy Psychiatric Medical History: Denies: Hx Bipolar Disorder, Hx Depression, Hx Post Traumatic Stress Disorder Traumatic Medical History: Denies: Hx Fractures Past Surgical History: Reports: Hx Cholecystectomy, Hx Herniorrhaphy - hiatal, Hx Tubal Ligation. Denies: Hx Appendectomy, Hx Bowel Surgery, Hx Section, Hx Colostomy, Hx Coronary Artery Bypass Graft, Hx Gastric Bypass Surgery, Hx Hysterectomy, Hx Mastectomy, Hx Pacemaker, Hx Tonsillectomy - Immunizations Hx Diphtheria, Pertussis, Tetanus Vaccination: Yes History of Influenza Vaccine for 12/2016 - 05/2017 Season: Yes Influenza Administration Date for 12/2016 - 05/2017 Season: 11/06/16 Doctor's Discharge - Discharge Referrals: BRITTA SCANLON DO [Primary Care Provider] - Follow up as needed
[2018-09-28 19:43] LABS: ABSOLUTE EOSINOPHILS # (AUTO) 0.6 10^3/uL (0.0-0.6); ABSOLUTE LYMPHOCYTES (AUTO) 3.1 10^3/uL (0.5-4.7); ABSOLUTE MONOCYTES (AUTO) 0.4 10^3/uL (0.1-1.4); ABSOLUTE NEUT (AUTO) 4.3 10^3/uL (1.7-8.2); BASOPHILS % (AUTO) 0.3 % (0-2); EOSINOPHILS % (AUTO) 7.3 % (0-6); HEMATOCRIT 40.9 % (36.0-47.0); HEMOGLOBIN 13.1 g/dL (12.0-15.5); LYMPHOCYTES % (AUTO) 36.3 % (13-45); MEAN CORPUSCULAR HEMOGLOBIN 25.3 pg (27.0-33.4); MEAN CORPUSCULAR HGB CONC 32.1 g/dL (32.0-36.0); MEAN CORPUSCULAR VOLUME 79 fl (80-97); MONOCYTES % (AUTO) 5.3 % (3-13); PLATELET COUNT 424 10^3/uL (150-450); RED BLOOD COUNT 5.19 10^6/uL (3.72-5.28); RED CELL DISTRIBUTION WIDTH 15.6 % (11.5-14.0); SEGMENTED NEUTROPHILS % (AUTO) 50.8 % (42-78); TOTAL CELLS COUNTED % (AUTO) 100 %; WHITE BLOOD COUNT 8.4 10^3/uL (4.0-10.5)
[2018-09-28 19:49] LABS: APPEARANCE,URINE SLIGHTLY-CLOUDY; BILIRUBIN,URINE NEGATIVE (NEGATIVE); COLOR,URINE YELLOW; GLUCOSE, URINE NEGATIVE (NEGATIVE); KETONES,URINE NEGATIVE (NEGATIVE); LEUKOCYTE ESTERASE,URINE NEGATIVE (NEGATIVE); NITRITE,URINE NEGATIVE (NEGATIVE); PROTEIN,URINE NEGATIVE (NEGATIVE); UROBILINOGEN,URINE NEGATIVE mg/dL (<2.0)
--- NOTE | 2018-09-28 19:55 | RADIOLOGY REPORT (SQ) ---
EXAM DESCRIPTION: CHEST 2 VIEWS COMPLETED DATE/TIME: 09/28/2018 7:35 pm REASON FOR STUDY: chest pain COMPARISON: 09/05/2018 TECHNIQUE: Frontal and lateral radiographic views of the chest acquired. NUMBER OF VIEWS: Two view. LIMITATIONS: None. FINDINGS: LUNGS AND PLEURA: No pneumothorax. No consolidation or pleural effusion. MEDIASTINUM AND HILAR STRUCTURES: Stable. HEART AND VASCULAR STRUCTURES: Stable. BONES: No acute findings. HARDWARE: None in the chest. OTHER: No other significant finding. IMPRESSION: NO ACUTE FINDINGS. TECHNICAL DOCUMENTATION: JOB ID: [id number] [id number] 2010 [employer]- All Rights Reserved Reading location - IP/workstation name: [email or web address]
[2018-09-28 19:58] LABS: ALANINE AMINOTRANSFERASE 14 U/L (9-52); ALBUMIN 4.6 g/dL (3.5-5.0); ALKALINE PHOSPHATASE 90 U/L (38-126); ANION GAP 7 (5-19); ASPARTATE AMINO TRANSFERASE 21 U/L (14-36); BILIRUBIN,DIRECT 0.2 mg/dL (0.0-0.4); BILIRUBIN,TOTAL 0.5 mg/dL (0.2-1.3); BLOOD UREA NITROGEN 16 mg/dL (7-20); CALCIUM 10.3 mg/dL (8.4-10.2); CARBON DIOXIDE 27 mmol/L (22-30); CHLORIDE 106 mmol/L (98-107); CREATINE KINASE 97 U/L (30-135); GLUCOSE 82 mg/dL (75-110); POTASSIUM 4.6 mmol/L (3.6-5.0); TOTAL PROTEIN 8.4 g/dL (6.3-8.2)
[2018-09-28 20:10] LABS: CREATINE KINASE MB 0.76 ng/mL (<4.55)
[2018-09-28 20:11] LABS: TROPONIN I < 0.012 ng/mL
[2018-09-28 23:13] LABS: FREE T4 (FREE THYROXINE) 1.36 ng/dL (0.78-2.19)
[2018-09-28 23:27] LABS: THYROID STIMULATING HORMONE 2.41 uIU/mL (0.47-4.68)
--- NOTE | 2018-09-29 00:05 | EKG REPORT ---
SEVERITY:- NORMAL ECG - SINUS RHYTHM : Confirmed by: Chelsie Avendano 29-Sep-2018 00:04:27
--- NOTE | 2018-09-29 00:27 | ER Document Report ---
ED General - General Chief Complaint: Chest Pain Stated Complaint: CHEST PAIN Time Seen by Provider: 09/28/18 19:08 Primary Care Provider: LUCIO WALLER MD [ACTIVE STAFF] - Follow up in 3-5 days ELA PETERSON MD [ACTIVE STAFF] - 09/30/18 BRITTA SCANLON DO [Primary Care Provider] - Follow up in 3-5 days Mode of Arrival: Ambulatory Notes: Patient is a pleasant 57-year-old female presents with complaint of fatigue and weight loss. She says is been ongoing now for approximately 2 weeks. She did have surgery on her knee approximately 3 weeks ago. She says that she is just felt more weak and tired than normal. She also complains of some chest pain. Chest pain did not start until this morning. She is only on the right side. Worse with movement. No coughing. No fevers. No history of PE or DVT. No new leg pain or leg swelling. He does have a history of hypertension and high cholesterol. She is a smoker. She denies any history of coronary disease. She did have a colonoscopy a few years ago and it was negative for any polyps or mass. She denies any associated fevers. She says that she is due for her mammogram. Last mammogram was approximately 7 years ago. Not noticed any obvious breast lumps or masses. She has no other complaints at this time. TRAVEL OUTSIDE OF THE [place] IN LAST 30 DAYS: No - Related Data Allergies/Adverse Reactions: fentanyl [Fentanyl] Allergy (Severe, Verified 09/28/18 18:04) Anaphylaxis Penicillins Allergy (Mild, Verified 09/28/18 18:04) rash w/scars morphine Adverse Reaction (Mild, Verified 09/28/18 18:04) Pruritis Past Medical History - General Information source: Patient - Social History Smoking Status: Current Every Day Smoker Chew tobacco use (# tins/day): No Frequency of alcohol use: Occasional Drug Abuse: None Family History: Reviewed & Not Pertinent, Other Patient has suicidal ideation: No Patient has homicidal ideation: No - Past Medical History Cardiac Medical History: Reports: Hx Congestive Heart Failure, Hx Hypertension Denies: Hx Atrial Fibrillation, Hx Coronary Artery Disease, Hx Heart Attack, Hx Hypercholesterolemia, Hx Peripheral Vascular Disease, Hx Pulmonary Embolism, Hx Heart Murmur Pulmonary Medical History: Reports: Hx Bronchitis, Hx COPD Denies: Hx Asthma, Hx Pneumonia, Hx Respiratory Failure, Hx Sleep Apnea, Hx Tuberculosis Neurological Medical History: Reports: Hx Migraine. Denies: Hx Cerebrovascular Accident, Hx Seizures Endocrine Medical History: Denies: Hx Hyperthyroidism, Hx Hypothyroidism Renal/ Medical History: Reports: Hx Kidney Stones. Denies: Hx End Stage Renal Disease, Hx Peritoneal Dialysis Malignancy Medical History: Denies: Hx Lung Cancer GI Medical History: Reports: Hx Gastroesophageal Reflux Disease, Hx Hiatal Hernia - repaired 10/29/17. Denies: Hx Crohn's Disease, Hx Irritable Bowel, Hx Liver Failure, Hx Pancreatitis, Hx Ulcer Musculoskeletal Medical History: Reports Hx Arthritis - FREEDOM KNEES, Denies Hx Fibromyalgia, Denies Hx Muscular Dystrophy Psychiatric Medical History: Denies: Hx Bipolar Disorder, Hx Depression, Hx Post Traumatic Stress Disorder Traumatic Medical History: Denies: Hx Fractures Past Surgical History: Reports: Hx Cholecystectomy, Hx Herniorrhaphy - hiatal, Hx Tubal Ligation. Denies: Hx Appendectomy, Hx Bowel Surgery, Hx Section, Hx Colostomy, Hx Coronary Artery Bypass Graft, Hx Gastric Bypass Surgery, Hx Hysterectomy, Hx Mastectomy, Hx Pacemaker, Hx Tonsillectomy - Immunizations Hx Diphtheria, Pertussis, Tetanus Vaccination: Yes Hx Pneumococcal Vaccination: 12/06/14 Review of Systems - Review of Systems Notes: My Normal Review Basic REVIEW OF SYSTEMS: CONSTITUTIONAL : Denies fever, chills, or sweats. Denies recent illness. Weight loss and fatigue. Cardiovascular: Pinpoint pain over right chest. RESPIRATORY: Denies cough, cold, or chest congestion. Denies wheezing. GASTROINTESTINAL: Denies abdominal pain. Denies nausea, vomiting, or diarrhea. GENITOURINARY: Denies difficulty urinating, painful urination, burning, frequency, or blood in urine. MUSCULOSKELETAL: Denies neck or back pain or joint pain or swelling. SKIN: Denies rash or skin lesions. NEUROLOGICAL: Denies altered mental status or loss of consciousness. Denies headache. Denies weakness or paralysis or loss of use of either side. Denies problems with gait or speech. Denies sensory or motor loss. PSYCHIATRIC: Denies anxiety or stress or depression. ALL OTHER SYSTEMS REVIEWED AND NEGATIVE. Physical Exam - Vital signs Vitals: Temp Pulse Resp BP Pulse Ox 97.6 F 70 16 154/85 H 96 09/28/18 18:35 09/28/18 18:35 09/28/18 18:35 09/28/18 18:35 09/28/18 18:35 - Notes Notes: General Appearance: Well nourished, alert, cooperative, no acute distress, no obvious discomfort. Appearing on exam. Vitals: reviewed, See vital signs table. Head: no swelling or tenderness to the head Eyes: PERRL, EOMI, Conjuctiva clear Mouth: No decreasd moisture Throat: No tonsillar inflammation, No airway obstruction, No lymphadenopathy Neck: Supple, no neck tenderness, No thyromegaly Lungs: No wheezing, No rales, No rhonci, No accessory muscle use, good air exchange bilaterally. Heart: Normal rate, Regular rythm, No murmur, no rub Abdomen: Normal BS, soft, No rigidity, No abdominal tenderness, No guarding, no rebound, no abdominal masses, no organomegaly Extremities: strength 5/5 in all extremities, good pulses in all extremities, no swelling or tenderness in the extremities, no edema. Skin: warm, dry, appropriate color, no rash Neuro: speech clear, oriented x 3, normal affect, responds appropriately to questions. Symmetric facial movement. Patient moves all extremities without difficulty. Distal sensation intact. No focal neurologic deficits on exam. Course - Re-evaluation Re-evalutation: 09/29/18 00:25 Exact cause of the patient's fatigue and weakness is not 100% clear. Is been ongoing now for several weeks. She did recently have surgery on her knee. This could be a potential cause. She does complain of some chest pain. Her chest pain is easily reproducible palpation to her right upper chest. She denies any difficulty breathing associated with. Her heart score is 3. No fevers. She is not tachycardic, tachypnea, or hypoxemic. I do not suspect PE at this time. She has no swelling or increasing pain to her legs. Patient clinically looks very well. She has lost some weight in the last 2 weeks. I am not sure if this is in relation to her recent surgery or something else. I will refer her to the nursery helper for outpatient stress testing. I will refer her to GI for further evaluation. She has had colonoscopies within the last 5 years which were negative. She also had upper GI endoscopy and was told that she may have some swallowing difficulty and therefore it is important to follow back up with GI physician. Also encouraged follow-up with primary care doctor she is due for mammogram and this should also be checked to make sure she does not have a breast mass or any signs of cancer. Patient encouraged to return to ER if she has worsening of her symptoms or she feels unwell in any way. Patient agrees with plan will be discharged home. Dictation of this chart was performed using voice recognition software; therefore, there may be some unintended grammatical errors. 09/29/18 00:27 - Vital Signs Vital signs: Temp Pulse Resp BP Pulse Ox 97.5 F 68 18 146/75 H 97 09/29/18 00:30 09/29/18 00:30 09/29/18 00:30 09/29/18 00:30 09/29/18 00:30 - Laboratory Result Diagrams: 09/28/18 19:20 09/28/18 19:20 Laboratory results interpreted by me: 09/28/18 09/28/18 09/28/18 19:20 19:20 19:20 MCV 79 L MCH 25.3 L RDW 15.6 H Eosinophils % 7.3 H Calcium 10.3 H Total Protein 8.4 H Urine Blood MODERATE H - EKG Interpretation by Me Additional EKG results interpreted by me: 09/29/18 00:28 EKG is reviewed and interpreted by me. EKG shows sinus rhythm with a rate of [address] segment elevation or depression. No ischemic T wave inversions. SD interval, QRS duration, QT intervals are within normal range. No old EKG available for comparison. Discharge - Discharge Clinical Impression: Weight loss Chest pain Qualifiers: Chest pain type: unspecified Qualified Code(s): R07.9 - Chest pain, unspecified Condition: Good Disposition: HOME, SELF-CARE Additional Instructions: The exact cause of your fatigue and weight loss is not 100% clear. Blood work looking at your thyroid function is normal. Blood work looking at your heart does not show evidence of a heart attack at this time; however, you do have risk factors for heart disease and therefore it still important you follow-up with the nursery helper. The nursery helper name is Dr. Peterson. Please call his office tomorrow to make a close follow-up appointment for reevaluation and possible outpatient stress testing. Please also follow-up with the GI physician, Dr. Waller. Please have him evaluate you due to your decreased appetite and weight loss to determine whether or not you need repeat scopes or further testing. Please follow-up with your primary care doctor about having your mammogram performed. Please have a low threshold to return to the ER if you have recurrent worsening chest pain, difficulty breathing, worsening fatigue , or if you feel that you are worsening in any way. Referrals: BRITTA SCANLON DO [Primary Care Provider] - Follow up in 3-5 days ELA PETERSON MD [ACTIVE STAFF] - 09/30/18 LUCIO WALLER MD [ACTIVE STAFF] - Follow up in 3-5 days
[2018-09-29 00:35] VITALS: BP 146/75
== END 2018-09-29 00:35 | disposition home or self-care (01) ==
LOC: ER 18:03
DX: R63.4 Abnormal weight loss (principal); R07.9 Chest pain, unspecified; R53.83 Other fatigue; R53.1 Weakness; I10 Essential (primary) hypertension; F17.200 Nicotine dependence, unspecified, uncomplicated; J44.9 Chronic obstructive pulmonary disease, unspecified; Z98.890 Other specified postprocedural states; Z87.892 Personal history of anaphylaxis; Z88.5 Allergy status to narcotic agent; Z88.0 Allergy status to penicillin
CPT/HCPCS: 36415; 71046; 80053; 81001; 82550; 82553; 83690; 84439; 84443; 84484; 85025; 93005; 93010; 99285

== ENCOUNTER → 2018-12-12 | Outpatient (CLI) | payer MEDICAID ==
[2018-12-12 10:28] LABS: ABSOLUTE EOSINOPHILS # (AUTO) 0.4 10^3/uL (0.0-0.6); ABSOLUTE LYMPHOCYTES (AUTO) 3.8 10^3/uL (0.5-4.7); ABSOLUTE MONOCYTES (AUTO) 0.5 10^3/uL (0.1-1.4); BASOPHILS % (AUTO) 0.2 % (0-2); EOSINOPHILS % (AUTO) 3.7 % (0-6); HEMATOCRIT 39.4 % (36.0-47.0); HEMOGLOBIN 12.7 g/dL (12.0-15.5); LYMPHOCYTES % (AUTO) 38.9 % (13-45); MEAN CORPUSCULAR HEMOGLOBIN 25.2 pg (27.0-33.4); MEAN CORPUSCULAR HGB CONC 32.2 g/dL (32.0-36.0); MEAN CORPUSCULAR VOLUME 78 fl (80-97); MONOCYTES % (AUTO) 5.6 % (3-13); PLATELET COUNT 382 10^3/uL (150-450); RED BLOOD COUNT 5.03 10^6/uL (3.72-5.28); SEGMENTED NEUTROPHILS % (AUTO) 51.6 % (42-78); TOTAL CELLS COUNTED % (AUTO) 100 %; WHITE BLOOD COUNT 9.7 10^3/uL (4.0-10.5)
[2018-12-12 11:04] LABS: ERYTHROCYTE SEDIMENTATION RATE 22 mm/hr (0-30)
[2018-12-12 11:20] LABS: ALBUMIN 4.3 g/dL (3.5-5.0); ALKALINE PHOSPHATASE 76 U/L (38-126); ANION GAP 8 (5-19); ASPARTATE AMINO TRANSFERASE 18 U/L (14-36); BILIRUBIN,DIRECT 0.1 mg/dL (0.0-0.4); BILIRUBIN,TOTAL 0.4 mg/dL (0.2-1.3); BLOOD UREA NITROGEN 10 mg/dL (7-20); C-REACTIVE PROTEIN 11.8 mg/L (<10.0); CALCIUM 9.9 mg/dL (8.4-10.2); CARBON DIOXIDE 28 mmol/L (22-30); CHLORIDE 104 mmol/L (98-107); CHOLESTEROL 197.56 mg/dL (0-200); GLUCOSE 95 mg/dL (75-110); POTASSIUM 4.4 mmol/L (3.6-5.0); TOTAL PROTEIN 7.9 g/dL (6.3-8.2); TRIGLYCERIDES 97 mg/dL (<150)
[2018-12-12 11:21] LABS: DIRECT LDL 121 mg/dL (<100)
== END ==
LOC: OD 09:27
PROVIDERS: ATTEND Family Medicine
DX: I10 Essential (primary) hypertension (principal); J44.9 Chronic obstructive pulmonary disease, unspecified; K59.1 Functional diarrhea; N95.1 Menopausal and female climacteric states
CPT/HCPCS: 36415; 80053; 80061; 84443; 85025; 85652; 86140

== ENCOUNTER → 2019-04-03 | Outpatient (CLI) | payer MEDICAID ==
--- NOTE | 2019-04-03 09:48 | RADIOLOGY REPORT (SQ) ---
EXAM DESCRIPTION: CERV SP 4 OR 5 VIEWS COMPLETED DATE/TIME: 04/03/2019 9:38 am REASON FOR STUDY: CERVICAL RADICULOPATHY COMPARISON: None. NUMBER OF VIEWS: Five views. TECHNIQUE: AP, lateral, obliques and odontoid radiographic images acquired of the cervical spine. LIMITATIONS: None. FINDINGS: MINERALIZATION: Normal. ALIGNMENT: Anatomic. VERTEBRAE: Vertebral bodies of normal height. DISCS: There is disc space narrowing at C5-C6 with prominent anterior osteophytes. Very mild disc sp penelope narrowing at C4-5. FORAMINA: Foraminal narrowing on the left at C5-C6 and C6-C7. Foraminal narrowing on the right at C5 -C6 and C6-C7. LATERAL AND POSTERIOR ELEMENTS: Facets, lateral masses and spinous processes without significant find ings. HARDWARE: None in the spine. SOFT TISSUES: No masses or calcifications. Lung apices clear. OTHER: No other significant finding. IMPRESSION: Spondylosis most marked at C4-5 and C5-C6. Bilateral foraminal narrowing at C5-C6 and C 6-C7. TECHNICAL DOCUMENTATION: JOB ID: [id number] [employer]- All Rights Reserved Reading location - IP/workstation name: [email or web address]
== END ==
LOC: RAD 09:02
PROVIDERS: ATTEND Family Medicine
DX: M54.12 Radiculopathy, cervical region (principal); M47.892 Other spondylosis, cervical region
CPT/HCPCS: 72050

== ENCOUNTER 2019-05-23 12:36 | Emergency (ER) | payer OTHER, MEDICAID ==
[2019-05-23] MEDS ORDERED: OXYCODONE-ACETAMINOPHEN 5-325 MG TABLET PO ONE (13:14)
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
[2019-05-23 15:11] LABS: ABSOLUTE BASOPHILS # (AUTO) 0.1 10^3/uL (0.0-0.2); ABSOLUTE EOSINOPHILS # (AUTO) 0.4 10^3/uL (0.0-0.6); ABSOLUTE LYMPHOCYTES (AUTO) 1.7 10^3/uL (0.5-4.7); ABSOLUTE MONOCYTES (AUTO) 0.3 10^3/uL (0.1-1.4); ABSOLUTE NEUT (AUTO) 4.6 10^3/uL (1.7-8.2); BASOPHILS % (AUTO) 0.9 % (0-2); EOSINOPHILS % (AUTO) 5.8 % (0-6); HEMATOCRIT 42.5 % (36.0-47.0); HEMOGLOBIN 14.3 g/dL (12.0-15.5); LYMPHOCYTES % (AUTO) 24.4 % (13-45); MEAN CORPUSCULAR HGB CONC 33.6 g/dL (32.0-36.0); MEAN CORPUSCULAR VOLUME 80 fl (80-97); MONOCYTES % (AUTO) 4.3 % (3-13); PLATELET COUNT 394 10^3/uL (150-450); RED BLOOD COUNT 5.29 10^6/uL (3.72-5.28); SEGMENTED NEUTROPHILS % (AUTO) 64.6 % (42-78); TOTAL CELLS COUNTED % (AUTO) 100 %; WHITE BLOOD COUNT 7.1 10^3/uL (4.0-10.5)
[2019-05-23 15:27] LABS: APPEARANCE,URINE CLEAR; BILIRUBIN,URINE NEGATIVE (NEGATIVE); COLOR,URINE YELLOW; GLUCOSE, URINE NEGATIVE (NEGATIVE); KETONES,URINE NEGATIVE (NEGATIVE); PROTEIN,URINE NEGATIVE (NEGATIVE); URINE SPECIFIC GRAVITY 1.015; UROBILINOGEN,URINE NEGATIVE mg/dL (<2.0)
[2019-05-23 15:31] LABS: ALBUMIN 4.5 g/dL (3.5-5.0); ALKALINE PHOSPHATASE 96 U/L (38-126); ANION GAP 8 (5-19); ASPARTATE AMINO TRANSFERASE 24 U/L (14-36); BILIRUBIN,TOTAL 0.5 mg/dL (0.2-1.3); BLOOD UREA NITROGEN 12 mg/dL (7-20); CARBON DIOXIDE 28 mmol/L (22-30); CHLORIDE 104 mmol/L (98-107); GLUCOSE 94 mg/dL (75-110); POTASSIUM 4.4 mmol/L (3.6-5.0); TOTAL PROTEIN 8.3 g/dL (6.3-8.2)
[2019-05-23 18:06] VITALS: BP 148/76
[2019-05-23] MEDS ORDERED: HYDROCODONE/ACETAMINOPHEN 5-325 MG (6 TAB/ER DISP) PO PRN (18:56)
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
== END 2019-05-23 19:12 | disposition home or self-care (01) ==
LOC: ER 12:36
DX: S16.1XXA Strain of muscle, fascia and tendon at neck level, initial encounter (principal); M54.2 Cervicalgia; M54.9 Dorsalgia, unspecified; V87.7XXA Person injured in collision between other specified motor vehicles (traffic), initial encounter; Z88.8 Allergy status to other drugs, medicaments and biological substances; Z88.0 Allergy status to penicillin; Z79.899 Other long term (current) drug therapy; F17.210 Nicotine dependence, cigarettes, uncomplicated; I50.9 Heart failure, unspecified; I11.0 Hypertensive heart disease with heart failure; J44.9 Chronic obstructive pulmonary disease, unspecified
CPT/HCPCS: 36415; 71046; 72070; 72110; 72125; 80053; 81001; 85025; 99284

== ENCOUNTER 2020-02-15 15:50 | Emergency (ER) | payer MEDICAID ==
--- NOTE | 2020-02-15 16:00 | ER Document Report ---
ED Medical Screen (RME) - General Chief Complaint: Lower Abdominal Pain Stated Complaint: SIDE PAIN Time Seen by Provider: 02/15/20 15:52 Primary Care Provider: BRITTA SCANLON DO [Primary Care Provider] - Follow up as needed Mode of Arrival: Wheelchair Information source: Patient Notes: 59-year-old female presented to ED right lower quadrant abdominal pain. She sta erika is been going on for about 4 days. She states she has been nauseated for the 4 days. She states she thinks it is her appendix. She states she has been hot and having night sweats but her temperature at this time is 97.7 blood pressure 152/80 pulse 60 the for an sats 100%.. We will get blood work urine and CT IV and oral contrast. I have greeted and performed a rapid initial assessment of this patient. A comprehensive ED assessment and evaluation of the patient, analysis of test results and completion of medical decision making process will be conducted by an additional ED providers. TRAVEL OUTSIDE OF THE [place] IN LAST 30 DAYS: No - Related Data Allergies/Adverse Reactions: fentanyl [Fentanyl] Allergy (Severe, Verified 09/28/18 18:04) Anaphylaxis Penicillins Allergy (Mild, Verified 09/28/18 18:04) rash w/scars morphine Adverse Reaction (Mild, Verified 09/28/18 18:04) Pruritis Past Medical History - Past Medical History Cardiac Medical History: Reports: Hx Congestive Heart Failure, Hx Hypertension Denies: Hx Atrial Fibrillation, Hx Coronary Artery Disease, Hx Heart Attack, Hx Hypercholesterolemia, Hx Peripheral Vascular Disease, Hx Pulmonary Embolism, Hx Heart Murmur Pulmonary Medical History: Reports: Hx Bronchitis, Hx COPD Denies: Hx Asthma, Hx Pneumonia, Hx Respiratory Failure, Hx Sleep Apnea, Hx Tuberculosis Neurological Medical History: Reports: Hx Migraine. Denies: Hx Cerebrovascular Accident, Hx Seizures Endocrine Medical History: Denies: Hx Hyperthyroidism, Hx Hypothyroidism Renal/ Medical History: Reports: Hx Kidney Stones. Denies: Hx End Stage Renal Disease, Hx Peritoneal Dialysis Malignancy Medical History: Denies: Hx Lung Cancer GI Medical History: Reports: Hx Gastroesophageal Reflux Disease, Hx Hiatal Hernia - repaired 10/29/17. Denies: Hx Crohn's Disease, Hx Irritable Bowel, Hx Liver Failure, Hx Pancreatitis, Hx Ulcer Musculoskeltal Medical History: Reports Hx Arthritis - FREEDOM KNEES, Denies Hx Fibromyalgia, Denies Hx Muscular Dystrophy Psychiatric Medical History: Denies: Hx Bipolar Disorder, Hx Depression, Hx Post Traumatic Stress Disorder Traumatic Medical History: Denies: Hx Fractures Past Surgical History: Reports: Hx Cholecystectomy, Hx Herniorrhaphy - hiatal, Hx Tubal Ligation. Denies: Hx Appendectomy, Hx Bowel Surgery, Hx Section, Hx Colostomy, Hx Coronary Artery Bypass Graft, Hx Gastric Bypass Surgery, Hx Hysterectomy, Hx Mastectomy, Hx Pacemaker, Hx Tonsillectomy - Immunizations Hx Diphtheria, Pertussis, Tetanus Vaccination: Yes Physical Exam - Vital signs Vitals: Temp 97.7 F 02/15/20 15:56 Course - Vital Signs Vital signs: Temp Pulse Resp BP Pulse Ox 97.7 F 02/15/20 15:56 Doctor's Discharge - Discharge Referrals: BRITTA SCANLON DO [Primary Care Provider] - Follow up as needed
[2020-02-15] MEDS ORDERED: HYDROMORPHONE HCL INJ/PF 2 MG/ML AMPULE IV ONE (16:04)
[2020-02-15] MEDS ORDERED: ONDANSETRON HCL INJ/PF 4 MG/2 ML SDV IV ONE (16:04)
[2020-02-15] MEDS ORDERED: DIPHENHYDRAMINE HCL 50 MG/ML VIAL IV ONE ×2 (16:19→17:46)
[2020-02-15 16:28] LABS: ABSOLUTE BASOPHILS # (AUTO) 0.2 10^3/uL (0.0-0.2); ABSOLUTE EOSINOPHILS # (AUTO) 0.5 10^3/uL (0.0-0.6); ABSOLUTE LYMPHOCYTES (AUTO) 2.6 10^3/uL (0.5-4.7); ABSOLUTE MONOCYTES (AUTO) 0.4 10^3/uL (0.1-1.4); ABSOLUTE NEUT (AUTO) 4.1 10^3/uL (1.7-8.2); BASOPHILS % (AUTO) 2.1 % (0-2); EOSINOPHILS % (AUTO) 6.9 % (0-6); HEMATOCRIT 42.3 % (36.0-47.0); HEMOGLOBIN 13.7 g/dL (12.0-15.5); LYMPHOCYTES % (AUTO) 33.6 % (13-45); MEAN CORPUSCULAR HEMOGLOBIN 25.8 pg (27.0-33.4); MEAN CORPUSCULAR HGB CONC 32.4 g/dL (32.0-36.0); MEAN CORPUSCULAR VOLUME 80 fl (80-97); MONOCYTES % (AUTO) 5.7 % (3-13); PLATELET COUNT 398 10^3/uL (150-450); RED BLOOD COUNT 5.31 10^6/uL (3.72-5.28); RED CELL DISTRIBUTION WIDTH 15.1 % (11.5-14.0); SEGMENTED NEUTROPHILS % (AUTO) 51.7 % (42-78); TOTAL CELLS COUNTED % (AUTO) 100 %; WHITE BLOOD COUNT 7.8 10^3/uL (4.0-10.5)
[2020-02-15 16:43] LABS: ALBUMIN 4.6 g/dL (3.5-5.0); ALKALINE PHOSPHATASE 89 U/L (38-126); ANION GAP 8 (5-19); ASPARTATE AMINO TRANSFERASE 24 U/L (14-36); BILIRUBIN,DIRECT 0.1 mg/dL (0.0-0.4); BILIRUBIN,TOTAL 0.5 mg/dL (0.2-1.3); BLOOD UREA NITROGEN 12 mg/dL (7-20); CALCIUM 10.2 mg/dL (8.4-10.2); CARBON DIOXIDE 28 mmol/L (22-30); CHLORIDE 105 mmol/L (98-107); GLUCOSE 92 mg/dL (75-110); POTASSIUM 4.2 mmol/L (3.6-5.0); TOTAL PROTEIN 8.7 g/dL (6.3-8.2)
[2020-02-15] MEDS ORDERED: NORMAL SALINE 1000 ML 1,000 ML IV ONE (17:00)
[2020-02-15] MEDS ORDERED: FAMOTIDINE INJ/PF 20 MG/2 ML SDV IV ONE ×2 (17:12→17:46)
--- NOTE | 2020-02-15 17:24 | RADIOLOGY REPORT (SQ) ---
EXAM DESCRIPTION: CT ABD/PELVIS WITH IV ONLY IMAGES COMPLETED DATE/TIME: 02/15/2020 5:10 pm REASON FOR STUDY: Right lower quadrant abdominal pain COMPARISON: None. TECHNIQUE: CT scan of the abdomen and pelvis performed using helical scanning technique with dynamic intravenous contrast injection. No oral contrast. Images reviewed with lung, soft tissue, and bone windows. Reconstructed coronal and sagittal MPR images reviewed. Delayed images for evaluation of the urinary system also acquired. All images stored on PACS. All CT scanners at this facility use dose modulation, iterative reconstruction, and/or weight based d osing when appropriate to reduce radiation dose to as low as reasonably achievable (ALARA). [facility]: Dose Right [facility]: CareDose [facility]: Dose Right [facility]: Teradose 4D [facility]: TOMODO CONTRAST TYPE AND DOSE: contrast/concentration: Isovue 350.00 mmol/ml; Total Contrast Delivered: 83. 0 ml; Total Saline Delivered: 69.0 ml RENAL FUNCTION: BUN 10 creatinine 0.34 RADIATION DOSE: CT Rad equipment meets quality standard of care and radiation dose reduction techniq ues were employed. CTDIvol: 6.3 - 8.6 mGy. DLP: 748 mGy-cm.. LIMITATIONS: None. FINDINGS: LOWER CHEST: No significant findings. No nodules or infiltrates. LIVER: Normal size. No masses. No dilated ducts. SPLEEN: Normal size. No focal lesions. PANCREAS: No masses. No significant calcifications. No adjacent inflammation or peripancreatic fluid collections. Pancreatic duct not dilated. GALLBLADDER: Surgically absent. ADRENAL GLANDS: No significant masses or asymmetry. RIGHT KIDNEY AND URETER: No solid masses. No significant calcifications. No hydronephrosis or hyd roureter. LEFT KIDNEY AND URETER: No solid masses. No significant calcifications. No hydronephrosis or hydr oureter. AORTA AND VESSELS: No aneurysm. No dissection. Renal arteries, SMA, celiac without stenosis. RETROPERITONEUM: No retroperitoneal adenopathy, hemorrhage or masses. BOWEL AND PERITONEAL CAVITY: No masses or inflammatory changes. No free fluid or peritoneal masses. APPENDIX: Normal. PELVIS: No mass. No free fluid. Normal bladder. ABDOMINAL WALL: No masses. No hernias. BONES: No significant or acute findings. OTHER: No other significant finding. IMPRESSION: NO SIGNIFICANT OR ACUTE FINDING IN THE ABDOMEN OR PELVIS ON CT SCAN WITH IV CONTRAST. TECHNICAL DOCUMENTATION: JOB ID: [id number] Quality ID # [id number]: Final reports with documentation of one or more dose reduction techniques (e.g., Au tomated exposure control, adjustment of the mA and/or kV according to patient size, use of iterative reconstruction technique) 2010 [employer]- All Rights Reserved Reading location - IP/workstation name: [email or web address]
[2020-02-15] MEDS ORDERED: METHYLPREDNISOLONE INJ 125 MG/2 ML SDV IV ONE (17:46)
[2020-02-15] MEDS ORDERED: KETOROLAC TROMETHAMINE INJ/PF 30 MG/1 ML SDV IV ONE (19:00)
[2020-02-15 19:28] LABS: APPEARANCE,URINE SLIGHTLY-CLOUDY; BILIRUBIN,URINE NEGATIVE (NEGATIVE); COLOR,URINE YELLOW; GLUCOSE, URINE NEGATIVE (NEGATIVE); KETONES,URINE NEGATIVE (NEGATIVE); LEUKOCYTE ESTERASE,URINE NEGATIVE (NEGATIVE); NITRITE,URINE NEGATIVE (NEGATIVE); PROTEIN,URINE NEGATIVE (NEGATIVE); UROBILINOGEN,URINE NEGATIVE mg/dL (<2.0)
[2020-02-15 19:30] LABS: URINE SPECIFIC GRAVITY > 1.060
[2020-02-15] MEDS ORDERED: CYCLOBENZAPRINE HCL 10 MG TABLET PO ONE (20:08)
[2020-02-15 20:24] VITALS: BP 160/86
--- NOTE | 2020-03-13 12:53 | ER Document Report ---
Entered by OSWALD JONAS SCRIBE 02/15/20 1807 Acting as scribe for:CHEYENNE BULLOCK MD ED GI/ - General Chief Complaint: Lower Abdominal Pain Stated Complaint: SIDE PAIN Time Seen by Provider: 02/15/20 15:52 Primary Care Provider: BRITTA SCANLON DO [Primary Care Provider] - Follow up as needed Mode of Arrival: Wheelchair Information source: Patient Notes: This 59-year-old female patient presents to the emergency department today to ru le out appendicitis. Patient presents with 4 days of abdominal pain and was sent in by her PCP for CT scan of the abdomen and pelvis. She reports her pain is increased with movement. Her last bowel movement 2 days ago and it was diarrhea which is not normal for her. Patient also had nausea and vomiting. She denies any heavy lifting. TRAVEL OUTSIDE OF THE [place] IN LAST 30 DAYS: No - Related Data Allergies/Adverse Reactions: fentanyl [Fentanyl] Allergy (Severe, Verified 09/28/18 18:04) Anaphylaxis Penicillins Allergy (Mild, Verified 09/28/18 18:04) rash w/scars morphine Adverse Reaction (Mild, Verified 09/28/18 18:04) Pruritis Past Medical History - General Information source: Patient - Social History Smoking Status: Unknown if Ever Smoked Cigarette use (# per day): No Frequency of alcohol use: None Drug Abuse: None Lives with: Family Family History: Reviewed & Not Pertinent, Other Patient has homicidal ideation: No - Past Medical History Cardiac Medical History: Reports: Hx Congestive Heart Failure, Hx Hypertension Pulmonary Medical History: Reports: Hx Bronchitis, Hx COPD Neurological Medical History: Reports: Hx Migraine Renal/ Medical History: Reports: Hx Kidney Stones GI Medical History: Reports: Hx Gastroesophageal Reflux Disease, Hx Hiatal Hernia - repaired 10/29/17 Musculoskeletal Medical History: Reports Hx Arthritis - FREEDOM KNEES Past Surgical History: Reports: Hx Cholecystectomy, Hx Herniorrhaphy - hiatal, Hx Tubal Ligation - Immunizations Hx Diphtheria, Pertussis, Tetanus Vaccination: Yes Hx Pneumococcal Vaccination: 12/06/14 Review of Systems - Review of Systems Constitutional: No symptoms reported EENT: No symptoms reported Cardiovascular: No symptoms reported Respiratory: No symptoms reported Gastrointestinal: See HPI, Abdominal pain, Diarrhea, Nausea, Vomiting Genitourinary: No symptoms reported Female Genitourinary: No symptoms reported Musculoskeletal: No symptoms reported Skin: No symptoms reported Hematologic/Lymphatic: No symptoms reported Neurological/Psychological: No symptoms reported -: Yes All other systems reviewed and negative Physical Exam - Vital signs Vitals: Temp 97.7 F 02/15/20 15:56 - Notes Notes: Physical Exam: General: Alert, appears well. HEENT: Normocephalic. Atraumatic. PERRL. Extraocular movements intact. Oropharynx clear. Neck: Supple. Non-tender. Respiratory: No respiratory distress. Clear and equal breath sounds bilaterally. Cardiovascular: Regular rate and rhythm. Abdominal: Minimal tenderness to palpation to deep palpation, increased tenderness to palpation of the right abdomen when palpation is done while trying to sit up with abdominal muscles flexed. No distension. Normal Bowel Sounds. Back: No gross abnormalities. Extremities: Moves all four extremities. Upper extremities: Normal inspection. Normal ROM. Lower extremities: Normal inspection. No edema. Normal ROM. Neurological: Normal cognition. AAOx4. Normal speech. Psychological: Normal affect. Normal Mood. Skin: Warm. Dry. Normal color. Course - Re-evaluation Re-evalutation: 02/15/20 18:12 Patient has a normal white blood cell count. She has an unremarkable contrasted CT scan of the abdomen pelvis. Reviewing prior records shows a few ER visits over the past few years for right lower quadrant abdominal pain. She is having considerable itching following the Dilaudid that was ordered from triage. She received Benadryl 25 mg IV, then Pepcid 20 mg IV. This only helped marginally. She is given an additional Benadryl 25 mg IV, Pepcid 20 mg IV, and Solu-Medrol 125 mg IV. - Vital Signs Vital signs: Temp Pulse Resp BP Pulse Ox 97.7 F 18 160/86 H 98 02/15/20 15:56 02/15/20 20:24 02/15/20 20:24 02/15/20 20:24 - Laboratory Results Result Diagrams: 02/15/20 16:05 02/15/20 16:05 Laboratory Results Interpreted: 02/15/20 02/15/20 02/15/20 16:05 16:05 18:45 RBC 5.31 H MCH 25.8 L RDW 15.1 H Eos % (Auto) 6.9 H Baso % (Auto) 2.1 H Total Protein 8.7 H Urine Blood SMALL H Critical Laboratory Results Reviewed: No Critical Results - Radiology Results Radiology Results Interpreted: 02/15/20 18:[address] scan of the abdomen pelvis does not show any acute abnormality. Critical Radiology Results Reviewed: No Critical Results Discharge - Discharge Clinical Impression: Strain of rectus abdominis muscle Qualifiers: Encounter type: initial encounter Qualified Code(s): S39.011A - Strain of muscle, fascia and tendon of abdomen, initial encounter Condition: Stable Disposition: HOME, SELF-CARE Additional Instructions: Abdominal Wall Rectus Muscle Strain: You have strained the anterior abdominal muscles. This often occurs with strenuous exertion, or during an injury that suddenly stretches the muscle. The seriousness of a strain varies. Some strains heal within days, others cause problems for months. X-rays cannot show a muscle strain. X-rays are taken only if symptoms suggest that a fracture could be present. The usual treatment of a muscle strain is rest and ice packs. Sometimes, a sling, splint, or crutches may be necessary to rest the muscle. The muscle can be used again once pain subsides. Severe strains require a special exercise and stretching program to prevent permanent stiffness and disability. Your doctor will advise you if this will be necessary. Call the doctor immediately if pain or swelling becomes severe, or if numbness or discoloration develop. Take the muscle relaxer medication as prescribed. Take ibuprofen 600 mg every 8 hours. Try to avoid activity that makes the pain worse, figure out how to best get out of bed and up from a chair without having to use your abdominal muscles. Follow-up with a local primary care provider if not improving. RETURN TO THE EMERGENCY ROOM IF ANY NEW OR WORSENING SYMPTOMS. Prescriptions: Cyclobenzaprine HCl 5 mg PO Q8 PRN #15 tablet PRN Reason: Referrals: CAPO,BRITTA, DO [Primary Care Provider] - Follow up as needed I personally performed the services described in the documentation, reviewed and edited the documentation which was dictated to the scribe in my presence, and it accurately records my words and actions.
== END 2020-02-15 20:25 | disposition home or self-care (01) ==
LOC: ER 15:50
DX: S39.011A Strain of muscle, fascia and tendon of abdomen, initial encounter (principal); R10.30 Lower abdominal pain, unspecified; R10.31 Right lower quadrant pain; R11.0 Nausea; R61 Generalized hyperhidrosis; X58.XXXA Exposure to other specified factors, initial encounter; I11.0 Hypertensive heart disease with heart failure; I50.9 Heart failure, unspecified; J44.9 Chronic obstructive pulmonary disease, unspecified; Z88.0 Allergy status to penicillin; Z88.8 Allergy status to other drugs, medicaments and biological substances
CPT/HCPCS: 96376; 99285; 96361; 96374; 96375; 36415; 83690; 85025; 80053; 81001; 74177; J3490; J1200; J2930; J1885; J1170; J2405; J7030; S0028